=== PATIENT | male | born 1955 | race Caucasian/White ===

== ENCOUNTER → 2016-09-11 | Outpatient (CLI) | payer OTHER ==
[~2016-09-11] MED LIST: ALBI1INJ SC; ALBU1AER9 INH; ASPI81TA28 PO; CHOL1000 PO; CYAN10005 IM; CYAN3INJ SC; GLC/500 PO; LOSA1TAB38 PO; MAGN1TAB41 PO; METF1000 PO; MULT-506 PO; OXYC1TAB3 PO; OYST500T47 PO; PANT40TA PO; PEDICHW50 PO; RED1CAP5 PO; TAMS0.4C59 PO
[2016-09-11 15:11] LABS: CHOLESTEROL/HDL RATIO 3.5
[2016-09-12 07:06] LABS: ESTIMATED AVERAGE GLUCOSE 134 mg/dl; HA1C FLAG Normal (Normal)
== END | disposition home or self-care (01) ==
LOC: C.LAB1850 12:52
PROVIDERS: ATTEND Internal Medicine Endocrinology, Diabetes & Metabolism
DX: E11.9 Type 2 diabetes mellitus without complications (principal)

== ENCOUNTER → 2017-05-16 | Day surgery (SDC) | payer OTHER ==
[2017-05-07 12:52] VITALS: BMI 35.0
[~2017-05-16] VITALS: Ht 182.9 cm; Wt 118.2 kg
[~2017-05-16] MED LIST changes: -ALBU1AER9 INH; -CYAN3INJ SC; -GLC/500 PO; +LIDOCAINE HCL 2% 2 ML VIAL (20MG/ML) ONE; -OXYC1TAB3 PO; -PEDICHW50 PO; +PROPOFOL IV EMULSION 10 MG/ML 20 ML VIAL IV ONE; +SODIUM CHLORIDE 0.9% 500ML 500 ML IV ONE; -TAMS0.4C59 PO
[2017-05-16 12:14] VITALS: Ht 182.9 cm; Wt 118.2 kg
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
--- NOTE | 2017-05-16 13:24 | GI REPORT ---
Procedure Date: 05/16/2017 12:49 PM Procedure: Colonoscopy Indications: Screening for colorectal malignant neoplasm Medicines: Monitored Anesthesia Care Complications: No immediate complications. Estimated Blood Loss: Estimated blood loss: none. Procedure: Pre-Anesthesia Assessment: - Prior to the procedure, a History and Physical was performed, and patient medications and allergies were reviewed. The patient's tolerance of previous anesthesia was also reviewed. The risks and benefits of the procedure and the sedation options and risks were discussed with the patient. All questions were answered, and informed consent was obtained. Prior Anticoagulants: The patient has taken aspirin, last dose was 1 day prior to procedure. ASA Grade Assessment: II - A patient with mild systemic disease. After reviewing the risks and benefits, the patient was deemed in satisfactory condition to undergo the procedure. After I obtained informed consent, the scope was passed under direct vision. Throughout the procedure, the patient's blood pressure, pulse, and oxygen saturations were monitored continuously. The scope was introduced through the anus and advanced to the terminal ileum. The colonoscopy was performed without difficulty. The patient tolerated the procedure well. The quality of the bowel preparation was good. The terminal ileum, ileocecal valve, appendiceal orifice, and rectum were photographed. Findings: A 8 mm polyp was found in the rectum. The polyp was sessile. The polyp was removed with a hot snare. Resection and retrieval were complete. Non-bleeding internal hemorrhoids were found during retroflexion. The hemorrhoids were small. Impression: - One 8 mm polyp in the rectum, removed with a hot snare. Resected and retrieved. - Non-bleeding internal hemorrhoids. Recommendation: - Resume previous diet. - Continue present medications. - Repeat colonoscopy for surveillance based on pathology results. - Return to primary care physician as previously scheduled. Mathew Mckee DO 05/16/2017 1:24:13 PM This report has been signed electronically. Note Initiated On: 05/16/2017 12:49 PM I attest to the content of the Intraoperative Record and orders documented therein, exceptions below
--- NOTE | 2017-05-16 13:28 | Discharge Instructions ---
Endoscopy Patient Instructions Date / Procedure(s) Performed May 16, 2017. Colonoscopy Allergy Information Coded Allergies: Tramadol (Verified Adverse Reaction, Unknown, itching, 05/16/17) Discharge Date / Findings May 16, 2017. Rectal polyp Internal hemorrhoids Medication Instructions Stopped Medication(s): NO MEDS TODAY OK to resume all medications today as prescribed Reported Home Medications Medications Dose Route/Sig Max Daily Dose Days Date Category Tanzeum (Albiglutide) 30 Mg Inj 30 Mg SC Sunday05/07/17 Reported Red Yeast Rice (Red Yeast Rice Extract) 300 Mg Cap 1 Tab PO QAM 05/07/17 Reported Multivitamin (Multivitamins) Tab 1 Tab PO QAM 05/07/17 Reported Magnesium (Magnesium Oxide) 400 Mg Tab 1 Tab PO QPM 05/07/17 Reported Vitamin D3 (Cholecalciferol) 1,000 Unit Tab 1 Tab PO QAM 05/07/17 Reported Vitamin B-12 (Cyanocobalamin) 1,000 Mcg Tab 1,000 Mcg IM MONTHLY 05/07/17 Reported Calcium (Oyster Shell) 500 Mg Tab 1 Tab PO QAM 05/07/17 Reported Aspirin Ec (Aspirin) 81 Mg Tab 81 Mg PO QPM 05/07/17 Reported Glucophage (Metformin Hcl) 1,000 Mg Tab 1,000 Mg PO BID 05/07/17 Reported Protonix (Pantoprazole Sodium) 40 Mg Tab 40 Mg PO QPM 01/18/13 Reported Cozaar (Losartan Potassium) 100 Mg Tab 100 Mg PO QPM 01/18/13 Reported Provider Instructions Activity Restrictions - No exercising or heavy lifting for 24 hours. - Do not drink alcohol the day of the procedure. - Do not drive a car or operate machinery until the day after the procedure. - Do not make any important decisions or sign important papers in 24 hours after the procedure. Following Day: - Return to full activity which may include returning to work/school. Diet Start your diet with liquids and light foods (jello, soup, juice, toast). Then eat your usual diet if not nauseated. Treatment For Common After Affects For mild abdominal pain, bloating, or excessive gas: - Rest - Eat lightly - Lie on right side Follow-Up Information Follow-up with RENNY FARMER as scheduled Anesthesia Information What You Should Know You have had a procedure that required some medicine to reduce anxiety and discomfort. This treatment is called moderate sedation. After receiving the treatment, you may be sleepy, but you will be able to breathe on your own. The effects of the treatment may last for several hours. Follow these instructions along with Activity/Diet recommendations noted above: * Do NOT do anything where dizziness or clumsiness would be dangerous. * Rest quietly at home today, then you can be up and about tomorrow. * Have a responsible person stay with you the rest of today. * You may have had an I.V. today. If so, you may take the dressing off later today. Recommendations Call your doctor if: * Trouble breathing * Continuous vomiting for more than 24 hours * Temperature above 101 degrees * Severe abdominal pain or bloating * Pain not relieved by pain medicine ordered * There is increased drainage or redness from any incision * A large amount of rectal bleeding greater than 2-3 tablespoons. (If you had a polyp/s removed or have hemorrhoids, a small amount of blood - from the rectum is to be expected.) * You have any unanswered questions or concerns. IN THE EVENT OF A SERIOUS EMERGENCY, GO TO THE NEAREST EMERGENCY ROOM Your discharge instructions were prepared by provider Mathew Mckee. Patient Instructions Signature Page Gerson Lopez Patient (or Guardian) Signature/Date: I have read and understand the instructions given to me by my caregivers. Caregiver/RN/Doctor Signature/Date: The above-named patient and/or guardian has received patient instructions on this date. + Original Patient Signature Page (only) stays with chart. Please make copy for patient.
[2017-05-16 13:50] VITALS: BP 95/68; PULSE 62; O2SAT 98
--- NOTE | 2017-05-16 14:24 | Anesthesiology Progress Note ---
Anesthesia Post Op Note Date & Time May 16, 2017 at 14:24 Vital Signs Pain Intensity: 0 Vital Signs Past 12 Hours Date Time Temp Pulse Resp B/P (MAP) Pulse Ox O2 Delivery O2 Flow Rate FiO2 05/16/17 13:50 62 20 95/68 (77) 98 Room Air 05/16/17 13:35 68 18 134/89 (104) 98 Room Air 05/16/17 13:20 65 16 116/68 (84) 98 Room Air 05/16/17 12:19 36.6 74 18 152/86 (108) 98 Room Air Notes Mental Status: alert / awake / arousable, participated in evaluation Pt Amnestic to Procedure: Yes Nausea / Vomiting: adequately controlled Pain: adequately controlled Airway Patency, RR, SpO2: stable & adequate BP & HR: stable & adequate Hydration State: stable & adequate Anesthetic Complications: no major complications apparent
== END | disposition home or self-care (01) ==
LOC: C.GI 12:00
PROVIDERS: ATTEND Internal Medicine
DX: Z12.11 Encounter for screening for malignant neoplasm of colon (principal); D12.8 Benign neoplasm of rectum; K64.8 Other hemorrhoids; G47.33 Obstructive sleep apnea (adult) (pediatric); I10 Essential (primary) hypertension; Z79.82 Long term (current) use of aspirin; Z98.84 Bariatric surgery status

== ENCOUNTER → 2017-06-14 | Outpatient (CLI) | payer OTHER ==
[~2017-06-14] MED LIST changes: -LIDOCAINE HCL 2% 2 ML VIAL (20MG/ML) ONE; -PROPOFOL IV EMULSION 10 MG/ML 20 ML VIAL IV ONE; -SODIUM CHLORIDE 0.9% 500ML 500 ML IV ONE
[2017-06-14 12:39] LABS: ALT/SGPT 25 U/L (12-78); AST/SGOT 16 U/L (15-37); BLOOD UREA NITROGEN 14 mg/dl (7-18); CALCIUM 9.2 mg/dl (8.5-10.1); CARBON DIOXIDE 29 mmol/L (21-32); CHLORIDE 105 mmol/L (98-107); CREATININE 1.07 mg/dl (0.60-1.40); GLUCOSE 106 mg/dl (70-99); POTASSIUM 4.1 mmol/L (3.5-5.1); SODIUM 141 mmol/L (136-145)
[2017-06-14 12:50] LABS: ALKALINE PHOSPHATASE 77 U/L (45-117); CHOLESTEROL 191 mg/dl (0-200); CHOLESTEROL/HDL RATIO 3.8; HDL CHOLESTEROL 50 mg/dl; LDL CHOLESTEROL CALCULATED 102 mg/dl; TRIGLYCERIDES 193 mg/dl (0-150); VERY LOW DENSITY LIPOPROT CALC 39 mg/dl
[2017-06-14 12:59] LABS: ESTIMATED AVERAGE GLUCOSE 134 mg/dl; HA1C FLAG Normal (Normal)
== END | disposition home or self-care (01) ==
LOC: C.LAB1850 09:41
PROVIDERS: ATTEND Physician Assistant
DX: E11.9 Type 2 diabetes mellitus without complications (principal)

== ENCOUNTER 2024-10-30 20:43 | Inpatient (IN) ==
--- NOTE | 2024-10-30 21:05 | Emergency Department Note ---
Impression & Plan Hydronephrosis due to obstruction of ureter, Ureterolithiasis, Right flank pain, Renal insufficiency ED Provider Note NAME: BRIGITTE TOVAR AGE: 69 SEX: M : 1955 ARRIVES VIA: Walk-In INFORMANT: Patient ED PROVIDER(S): Vishnu Araya MD CHIEF COMPLAINT: Right flank pain, kidney stone. PLAN: Disposition: Admit MEDICAL DECISION MAKING: The patient is a pleasant 69-year-old gentleman with a past medical history of hypertension, hyperlipidemia, BPH, type 2 diabetes who presents to the emergency department via walk-in for evaluation of persistent right flank pain in setting of being seen in this emergency department several days ago for similar symptoms diagnosed with an obstructing kidney stone. Patient symptoms were controlled and trial of outpatient management was pursued. However, patient reports she has had no improvement and has fluctuating symptoms where he has found it difficult to sleep. He reports associated nausea but denies any vomiting. Denies any chest pain or shortness of breath. He reports he did feel chills intermittently but denies any fevers. On evaluation patient is uncomfortable in no distress, afebrile with with heart in 100s and blood pressure 170/80s in the setting of his discomfort and otherwise stable vital signs. He appears clinically dry. Abdomen is nontender. He has no discrete CVA tenderness though reports discomfort. WBC and platelets within normal limits. H/H 13.2/39.6, slightly decreased from prior values and nonspecific. Glucose 299 however chemistry without metabolic acidosis. Creatinine 1.6, increased from recent consistent with YOAN. LFTs unremarkable. Lipase was not elevated. UA without evidence of infection. CT of the abdomen pelvis was performed and demonstrates obstructing right ureteral stone which is described as 2 calculi in the distal ureter measuring 7 mm and 3 mm in size which appears to have migrated from the mid ureter to the distal ureter. Mild right hydronephrosis and hydroureter persist. Patient did report some initial improvement following IV hydration, IV APAP, Zofran and morphine. However pain did recur and he did agree with plan for admission. Case was discussed with Dr. Reardon, [facility] hospitalist, who will evaluate the patient for admission. Further management per admitting team. Triage Nursing notes reviewed and agree them. Prior/external medical records reviewed Vital Signs: reviewed Differential diagnosis: Renal colic, UTI, appendicitis, diverticulitis, mesenteric ischemia, aortic pathology, infections, inflammatory bowel disease, PUD, biliary pathology, as well as other pathologies. ER treatment provided: See below. Diagnostics interpreted by me: Cardiac Monitoring: An order for continuous cardiac monitoring was placed and demonstrated sinus tachycardia, 105 bpm, no ectopy. Laboratory studies: See below Imaging studies: See below Consultation(s): Case was discussed with Dr. Reardon, [facility] hospitalist, who will evaluate the patient for admission. HPI: The patient is a pleasant 69-year-old gentleman with a past medical history of hypertension, hyperlipidemia, BPH, type 2 diabetes who presents to the emergency department via walk-in for evaluation of persistent right flank pain in setting of being seen in this emergency department several days ago for similar symptoms diagnosed with an obstructing kidney stone. Patient symptoms were controlled and trial of outpatient management was pursued. However, patient reports she has had no improvement and has fluctuating symptoms where he has found it difficult to sleep. He reports associated nausea but denies any vomiting. Denies any chest pain or shortness of breath. He reports he did feel chills intermittently but denies any fevers. ROS: See above HPI for pertinent positives & negatives. A total of 10 systems reviewed and were otherwise negative. GENERAL: Awake, alert, uncomfortable-appearing, in no distress HENT: Normocephalic, atraumatic. Oropharynx with dry mucous membranes and otherwise unremarkable. . EYES: Normal conjunctiva. Sclera non-icteric. NECK: Supple. No nuchal rigidity. FROM. No JVD. RESPIRATORY: Clear to auscultation. CARDIAC: Regular rate, normal rhythm. Extremities warm and well perfused. Pulses equal. ABDOMEN: Soft, non-distended. No tenderness to palpation. No rebound or guarding. No masses. MUSCULOSKELETAL: Chest examination reveals no tenderness. The back is symmetrical on inspection without obvious abnormality. There is no CVA tenderness to palpation. No joint edema. LOWER EXTREMITIES: Calves are equal size bilaterally and non-tender. No edema. No discoloration. NEURO: Normal sensorium. No sensory or motor deficits noted. SKIN: No rash or jaundice noted. Vishnu Araya MD Past Med/Surg History Problem List Renal insufficiency (Acute) Right flank pain (Acute) Ureterolithiasis (Acute) Hydronephrosis due to obstruction of ureter (Acute) Acute renal insufficiency Hydronephrosis of right kidney Right nephrolithiasis Hematuria (Acute) Hydronephrosis (Acute) Renal colic (Acute) Acute right flank pain (Acute) Uncontrolled type 2 diabetes mellitus Vitamin B 12 deficiency (Acute) S/P gastric bypass (Acute) Obstructive sleep apnea (Acute) Obesity (Acute) Hypertension (Acute) Hyperlipidemia (Acute) Erectile dysfunction (Acute) Esophageal reflux (Acute 01/18/13) Diabetic peripheral neuropathy (Acute) Benign localized prostatic hyperplasia with lower urinary tract symptoms (LUTS) (Acute) Type II diabetes with penitentiary use of insulin Loss of protective sensation of skin of foot Myalgia due to statin Left flank pain Fatty liver Medical History Neuropathy fingers and toes Kidney stones passed on own Esophageal reflux Borderline high cholesterol History of COVID-19 approx 2 yrs ago > not hospitalized CELI (obstructive sleep apnea) no device Hypertension Diabetes Surgical History History of esophagogastroduodenoscopy (EGD) History of colonoscopy History of tooth extraction Gastric bypass status for obesity H/O splenectomy Family History Father , late 60s/early 70s Colorectal cancer Mother Diabetes Pts mother had triopathy secondary to diabetes Social History Smoking Status: Never smoker Second Hand Exposure: No; Do You Dip or Chew Tobacco: No; Tobacco Cessation Education Requested by Patient: No Hx Alcohol Use: Yes Alcohol type: beer Alcohol Intake Frequency: Monthly or Less Alcohol Intake Frequency Comment: Social Drinker Hx Substance Use: No Preferred Language: Norwegian Communication Ability: Effective Visual Impairment: Limited Hearing Ability: Normal Surgery Attendant Required: No Beliefs That Will Affect Care: None marital status: Current Living Situation: Spouse current occupational status: employed 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 Other Information That Helps Us Care for You: No Feels Safe at Home: Yes Safety Concerns: Feels Safe At This Time Childhood Exposure to Second-Hand Smoke: No Diet: regular during the past year weight has: remained stable Dental Care, Regularly: Yes Seatbelt Use: always Do you think of yourself as: straight/heterosexual Gender Identity: Male Assistive Devices: Denture - Upper, Denture - Lower and Glasses Allergies Allergies Allergy/AdvReac Type Severity Reaction Status Date / Time lisinopril Allergy Intermediate Cough Verified 10/27/24 10:47 atorvastatin [From Lipitor] Allergy Unknown Unknown Verified 10/27/24 10:47 simvastatin [From Zocor] Allergy Unknown Unknown Verified 10/27/24 10:47 tramadol AdvReac Unknown itching Verified 10/27/24 10:47 Home Meds Home Medications Medication Instructions Recorded Confirmed aspirin 81 mg tablet,delayed 81 mg PO HS 04/09/19 10/30/24 release magnesium oxide 400 mg PO HS 04/09/19 10/30/24 multivitamin with minerals (Daily 1 tab PO QAM 04/09/19 10/30/24 Multivitamin-Minerals tablet) red yeast rice 600 mg tablet 600 mg PO QAM 04/09/19 10/30/24 blood sugar diagnostic (OneTouch #10 ea 11/03/19 04/30/24 Verio test strips) lancets 30 gauge (OneTouch Delica #25 ea 11/03/19 04/30/24 Lancets) acetaminophen 500 mg tablet 500 mg PO Q6H PRN Pain 01/06/22 10/30/24 (Tylenol Extra Strength) omega [id number] oil 900 1 cap PO QAM ##0 01/06/22 10/30/24 mg-1,400 mg capsule,delayed release calcium carbonate 1,200 mg PO QAM 09/21/22 10/30/24 insulin degludec 200 unit/mL (3 18 unit subcut SPACE 10/27/24 10/30/24 mL) subcutaneous pen (Tresiba FlexTouch U-200 insulin) Previous Rx's Medication Instructions Recorded blood-glucose sensor (FreeStyle #2 ea 01/23/23 Daniel 3 Sensor device) cholecalciferol (vitamin D3) 25 25 mcg PO QAM #90 caps 02/18/24 mcg (1,000 unit) capsule pen needle, diabetic 31 gauge x #100 ea 02/21/24 3/16" (BD Ultra-Fine Mini Pen Needle) tamsulosin 0.4 mg capsule (Flomax) 0.4 mg PO HS #90 caps 02/21/24 losartan 100 mg tablet 100 mg PO HS #90 tabs 04/25/24 metformin 1,000 mg tablet 1,000 mg PO BID #180 tabs 04/25/24 albuterol sulfate 90 mcg/actuation 2 puff inhalation Q6H PRN 08/12/24 aerosol inhaler shortness of breath or wheezing #6.7 grams famotidine 20 mg tablet 20 mg PO BID #180 tabs 08/14/24 ezetimibe 10 mg tablet (Zetia) 10 mg PO DAILY #30 tabs 10/20/24 oxycodone 5 mg tablet 5 mg PO Q6 PRN pain #12 tabs 10/27/24 Results & Data (ED) Vital Signs Vital Signs - 24 hr 10/30/24 20:47 10/30/24 21:11 10/30/24 21:18 Temperature 36.7 C Temperature Source Temporal Artery Scan Pulse Rate 105 H 94 H Pulse Rate [Apical] 89 Pulse Rhythm Pulse Rhythm [Apical] Regular Pulse Strength [Apical] Normal Respiratory Rate 18 18 Respiratory Effort / Characteristics Non-Labored Non-Labored Spontaneous Respiratory Depth Normal Normal Respiratory Pattern Regular Blood Pressure 173/81 H Blood Pressure [Right Arm] 166/88 H Blood Pressure Mean 111 Blood Pressure Mean [Right Arm] 114 Blood Pressure Position [Right Arm] Lying Pulse Oximetry 95 96 Oxygen Delivery Method Room Air Room Air Sepsis Recent Fever Within 48 Hours No Sepsis New/Unexplained Change in Mental Status No Sepsis Action Taken by Nursing No Action Required 10/30/24 21:18 10/30/24 22:23 Temperature Temperature Source Pulse Rate 76 Pulse Rate [Apical] 72 Pulse Rhythm Regular Pulse Rhythm [Apical] Regular Pulse Strength [Apical] Normal Respiratory Rate 18 20 Respiratory Effort / Characteristics Non-Labored Spontaneous Respiratory Depth Normal Respiratory Pattern Regular Blood Pressure Blood Pressure [Right Arm] 136/81 Blood Pressure Mean Blood Pressure Mean [Right Arm] 99 Blood Pressure Position [Right Arm] Lying Pulse Oximetry 96 95 Oxygen Delivery Method Room Air Room Air Sepsis Recent Fever Within 48 Hours Sepsis New/Unexplained Change in Mental Status Sepsis Action Taken by Nursing Laboratory Data Attestation: I reviewed the patient's lab results. 10/30/24 21:10 10/30/24 21:10 Lab Results 10/30/24 Range/Units 21:10 WBC 10.44 (4.8-10.8) K/ul RBC 4.53 L (4.70-6.10) M/uL Hgb 13.2 L (14.0-18.0) g/dl Hct 39.6 L (42.0-52.0) % MCV 87.4 (80.0-100.0) fL MCH 29.1 (25.0-34.0) pg MCHC 33.3 (32.0-36.0) g/dL RDW Std Deviation 47.2 H (36.4-46.3) fL RDW Coeff of Shailesh 14.6 H (11.5-14.5) % Plt Count 313 (130-400) K/uL MPV 9.5 (9.4-12.4) fL Immature Gran % (Auto) 0.3 % Neut % (Auto) 67.0 % Lymph % (Auto) 18.0 % [place] % (Auto) 12.0 % Eos % (Auto) 1.7 % Baso % (Auto) 1.0 % Neut # (Auto) 7.00 H (1.40-6.50) K/uL Lymph # (Auto) 1.88 (1.20-3.40) K/uL [place] # (Auto) 1.25 H (0.11-0.59) K/uL Eos # (Auto) 0.18 (0.00-0.50) K/uL Baso # (Auto) 0.10 (0.00-0.20) K/uL Immature Gran # (Auto) 0.03 (0.01-0.20) K/uL Sodium 135 L (136-145) mmol/L Potassium 4.3 (3.5-5.1) mmol/L Chloride 102 (98-107) mmol/L Carbon Dioxide 24 (21-32) mmol/L Anion Gap 9 (3-11) BUN 21 (6-23) mg/dl Creatinine 1.67 H (0.6-1.4) mg/dl Est Cr Clr Drug Dosing 57.0 ml/min eGFR 44.03 BUN/Creatinine Ratio 12.6 (10-20) Glucose 299 H (70-99(Fasting)) mg/dl Calcium 8.9 (8.6-10.3) mg/dl Total Bilirubin 0.7 (0.2-1.0) mg/dl AST 17 (13-39) U/L ALT 16 (7-52) U/L Alkaline Phosphatase 64 (34-104) U/L Total Protein 6.8 (6.0-8.3) gm/dl Albumin 3.8 (3.4-5.0) gm/dl Globulin 3.0 (2.5-4.0) gm/dl Albumin/Globulin Ratio 1.3 (0.9-2) Lipase 60 (11-82) U/L Urine Color Yellow Urine Appearance Clear (Clear) Urine pH 5.0 (4.5-7.5) Ur Specific [place] 1.019 (1.000-1.030) Urine Protein Negative (Negative) Urine Glucose (UA) 3+ H (Negative) Urine Ketones Trace H (Negative) Urine Blood 1+ H (Negative) Urine Nitrite Negative (Negative) Urine Bilirubin Negative (Negative) Urine Urobilinogen Negative (Negative) Ur Leukocyte Esterase Negative (Negative) Urine WBC (Auto) 0-5 (0-5) /hpf Urine RBC (Auto) 0-2 (0-2) /hpf U Hyaline Cast (Auto) 0-2 (0-2) /lpf U Epithel Cells (Auto) 0-2 (0-2) /hpf Urine Bacteria (Auto) None Seen (None Seen) Administered Medications Hydromorphone HCl (Hydromorphone Inj 1 Mg/Ml Syringe) 1 mg IV Q3H PRN PRN Reason: Severe Pain (Scale 7, 8, 9,10) Stop: 11/14/24 02:06 Last Admin: 10/31/24 05:14 Dose: 1 mg Documented By: VANIA Cefepime HCl (Maxipime 2000mg) 1,000 mg in 10 mls @ 5 mls/min IV Q12H [facility]; Protocol Stop: 11/05/24 00:00 Last Admin: 10/31/24 01:40 Dose: 5 mls/min Documented By: KALI Lactated Ringer's (Lr) 1,000 mls @ 80 mls/hr IV .[id number] [facility] Stop: 10/31/24 23:29 Last Admin: 10/31/24 00:04 Dose: 80 mls/hr Documented By: SUHAIL Acetaminophen (Ofirmev) 1,000 mg in 100 mls @ 400 mls/hr IV Q8H [facility] Stop: 11/03/24 04:59 Last Infusion: 10/31/24 05:38 Dose: Infused Documented By: Admin: 10/31/24 05:13 Dose: 400 mls/hr Documented By: VANIA Insulin Aspart (Insulin Aspart Per Unit Charge) 0 units SC Q6 DEISY Stop: 11/30/24 00:00 Last Admin: 10/31/24 01:30 Dose: Not Given Documented By: KALI Ondansetron HCl (Ondansetron Inj 2 Mg/Ml 2 Ml Vial) 4 mg IV Q6H PRN PRN Reason: Nausea And Vomiting Stop: 11/29/24 23:31 Last Admin: 10/31/24 05:22 Dose: 4 mg Documented By: Admin: 10/31/24 00:20 Dose: 4 mg Documented By: SUHAIL Discontinued Medications Hydromorphone HCl (Hydromorphone Inj 0.5 Mg/0.5 Ml Syr) 0.5 mg IV NOW STA Stop: 10/30/24 23:28 Last Admin: 10/31/24 00:04 Dose: 0.5 mg Documented By: SUHAIL Sodium Chloride (Nss) 1,000 mls @ 999 mls/hr IV .Q1H1M ONE Stop: 10/30/24 21:59 Last Infusion: 10/30/24 23:30 Dose: Infused Documented By: Admin: 10/30/24 21:09 Dose: 999 mls/hr Documented By: SUHAIL Acetaminophen (Ofirmev) 1,000 mg in 100 mls @ 400 mls/hr IV NOW STA Stop: 10/30/24 21:13 Last Infusion: 10/30/24 21:40 Dose: Infused Documented By: Admin: 10/30/24 21:08 Dose: 400 mls/hr Documented By: SUHAIL Morphine Sulfate (Morphine Sulfate 4 Mg/Ml 1 Ml Carp\\Vial) 4 mg IV NOW STA Stop: 10/30/24 21:05 Last Admin: 10/30/24 21:09 Dose: 4 mg Documented By: SUHAIL Morphine Sulfate (Morphine Sulfate 10 Mg/Ml Carp/Vial) 6 mg IV NOW STA Stop: 10/30/24 23:27 Last Admin: 10/30/24 23:56 Dose: Not Given Documented By: KALI Ondansetron HCl (Ondansetron Inj 2 Mg/Ml 2 Ml Vial) 4 mg IV NOW STA Stop: 10/30/24 21:00 Last Admin: 10/30/24 21:09 Dose: 4 mg Documented By: SUHAIL Imaging Data Radiologist's Impression: Abdomen/Pelvis CT 10/30/24 21:50 Exam(s): CT ABDOMEN + PELVIS Without Contrast EXAM: CT Abdomen and Pelvis Without Intravenous Contrast CLINICAL HISTORY: Reason for exam: right flank pain. TECHNIQUE: Axial computed tomography images of the abdomen and pelvis without intravenous contrast. CTDI is 28.14 mGy and DLP is 1754.82 mGy-cm. Automated exposure control was utilized for the study. A dose lowering technique was utilized adhering to the principles of ALARA. COMPARISON: 10/27/2024. FINDINGS: Exam is limited due to lack of contrast. Lung bases: No consolidation. ABDOMEN: Liver: The liver is enlarged. Gallbladder and bile ducts: Gallbladder is markedly distended. . No calcified stones. No ductal dilation. Pancreas: No ductal dilation. Spleen: No splenomegaly. There are calcifications within the spleen. Adrenals: No mass. Kidneys and ureters: There is a 3.5 cm lucency in the right kidney. There are small bilateral renal calcifications. There is mild right hydronephrosis and hydroureter due to two calculi in the distal ureter measuring 7 mm and 3 mm in size Stomach and bowel: There are postoperative changes involving the bowel. The stomach is decompressed. There is air and stool noted in the colon.. PELVIS: Appendix: The appendix is not visualized.. Bladder: No calculi are noted within the bladder.. Reproductive: The prostate gland is enlarged.. ABDOMEN and PELVIS: Intraperitoneal space: No free air. No significant fluid collection. Bones/joints: There are degenerative changes in the spine.. Soft tissues: Unremarkable. Vasculature: No abdominal aortic aneurysm. Lymph nodes: No enlarged lymph nodes. IMPRESSION: There are small bilateral renal calcifications. There is mild right hydronephrosis and hydroureter due to two calculi in the distal ureter measuring 7 mm and 3 mm in size. There is a possible right renal cyst. The prostate gland is enlarged. The gallbladder is markedly distended. Hepatomegaly. Electronically signed by: Harley Burns MD 10/30/24 23:05 PM Discharge Plan Visit Data Chief Complaint: Flank Pain Stated Complaint: KIDNEY STONES ED Provider: Cross,Vishnu E Discharge Problem: Hydronephrosis due to obstruction of ureter, Ureterolithiasis, Right flank pain, Renal insufficiency Patient Disposition: Admitted As Inpatient Discharge Instructions Interventions: ED Discharge Assessment Last Done: 10/31/24 01:45
[2024-10-30] MEDS: ACETAMINOPHEN 1,000 MG/100 ML VIAL IV STA (21:08)
[2024-10-30] MEDS: ONDANSETRON INJ 2 MG/ML 2 ML VIAL IV STA (21:09)
[2024-10-30] MEDS: MoRPHine SULFATE 4 MG/ML 1 ML CARP\\VIAL IV STA (21:09)
[2024-10-30] MEDS: SODIUM CHLORIDE 0.9% 1,000 ML IV ONE (21:09)
[2024-10-30 21:27] LABS: Eosinophils # (auto) 0.18 K/uL (0.00-0.50); Eosinophils % (auto) 1.7 %; Hematocrit (blood only) 39.6 % (42.0-52.0); Hemoglobin 13.2 g/dl (14.0-18.0); Immature Granulocytes # (auto) 0.03 K/uL (0.01-0.20); Immature Granulocytes % (auto) 0.3 %; Lymphocytes # (auto) 1.88 K/uL (1.20-3.40); Mean Corpuscular Hemoglobin 29.1 pg (25.0-34.0); Mean Corpuscular Hgb Conc 33.3 g/dL (32.0-36.0); Mean Corpuscular Volume 87.4 fL (80.0-100.0); Mean Platelet Volume 9.5 fL (9.4-12.4); Monocytes # (auto) 1.25 K/uL (0.11-0.59); Platelet Count 313 K/uL (130-400); RDW Coefficient of Variation 14.6 % (11.5-14.5); RDW Standard Deviation 47.2 fL (36.4-46.3); Red Blood Count 4.53 M/uL (4.70-6.10); White Blood Count 10.44 K/ul (4.8-10.8)
[2024-10-30 21:29] LABS: Appearance Urine Clear (Clear); Bacteria Urine Automated None Seen (None Seen); Bilirubin Urine Negative (Negative); Blood Urine 1+ (Negative); Cast Urine Automated 0-2 /lpf (0-2); Color Urine Yellow; Epithelial Cell Urine Auto 0-2 /hpf (0-2); Glucose Urine UA 3+ (Negative); Ketones Urine Trace (Negative); Leukocyte Esterase Urine Negative (Negative); Nitrite Urine Negative (Negative); Protein Urine Negative (Negative); RBC Urine Automated 0-2 /hpf (0-2); Specific Gravity Urine 1.019 (1.000-1.030); Urobilinogen Urine Negative (Negative); WBC Urine Automated 0-5 /hpf (0-5)
[2024-10-30 21:42] LABS: Albumin Globulin Ratio 1.3 (0.9-2); Albumin Level 3.8 gm/dl (3.4-5.0); BUN Creatinine Ratio 12.6 (10-20); Bilirubin,Total 0.7 mg/dl (0.2-1.0); Calcium 8.9 mg/dl (8.6-10.3); Potassium 4.3 mmol/L (3.5-5.1); Total Protein 6.8 gm/dl (6.0-8.3)
--- NOTE | 2024-10-30 23:06 | CT Scan Report ---
Exam(s): CT ABDOMEN + PELVIS Without Contrast EXAM: CT Abdomen and Pelvis Without Intravenous Contrast CLINICAL HISTORY: Reason for exam: right flank pain. TECHNIQUE: Axial computed tomography images of the abdomen and pelvis without intravenous contrast. CTDI is 28.14 mGy and DLP is 1754.82 mGy-cm. Automated exposure control was utilized for the study. A dose lowering technique was utilized adhering to the principles of ALARA. COMPARISON: 10/27/2024. FINDINGS: Exam is limited due to lack of contrast. Lung bases: No consolidation. ABDOMEN: Liver: The liver is enlarged. Gallbladder and bile ducts: Gallbladder is markedly distended. . No calcified stones. No ductal dilation. Pancreas: No ductal dilation. Spleen: No splenomegaly. There are calcifications within the spleen. Adrenals: No mass. Kidneys and ureters: There is a 3.5 cm lucency in the right kidney. There are small bilateral renal calcifications. There is mild right hydronephrosis and hydroureter due to two calculi in the distal ureter measuring 7 mm and 3 mm in size Stomach and bowel: There are postoperative changes involving the bowel. The stomach is decompressed. There is air and stool noted in the colon.. PELVIS: Appendix: The appendix is not visualized.. Bladder: No calculi are noted within the bladder.. Reproductive: The prostate gland is enlarged.. ABDOMEN and PELVIS: Intraperitoneal space: No free air. No significant fluid collection. Bones/joints: There are degenerative changes in the spine.. Soft tissues: Unremarkable. Vasculature: No abdominal aortic aneurysm. Lymph nodes: No enlarged lymph nodes. IMPRESSION: There are small bilateral renal calcifications. There is mild right hydronephrosis and hydroureter due to two calculi in the distal ureter measuring 7 mm and 3 mm in size. There is a possible right renal cyst. The prostate gland is enlarged. The gallbladder is markedly distended. Hepatomegaly. Electronically signed by: Harley Burns MD 10/30/24 23:05 PM
--- NOTE | 2024-10-30 23:33 | History & Physical Report ---
Date of Service October 30, 2024 Assessment & Plan (1) Right nephrolithiasis: (2) Hydronephrosis of right kidney: (3) Acute renal insufficiency: (4) Type II diabetes with superintendent container terminal use of insulin: Plan Patient is a 69-year-old male with past medical history of type II DM on insulin, CELI, hypertension, hyperlipidemia, BPH, GERD, history of gastric bypass surgery. He presented to the ED 10/27 and was found to have a 7 mm obstructing right mid ureteral stone and discharged on oxycodone. Patient returned to the ED 10/30 due to worsening pain. He was now found to have a 7 and 3 mm distal ureter stones with mild right hydronephrosis. He has been admitted for IV pain control, will make n.p.o. and consult urology. #Right nephrolithiasis/hydronephrosis/acute renal insufficiency CTAP showing mild right hydronephrosis and hydroureter due to 7 mm and 3 mm calculi in distal ureter UA negative however will send for culture nonseptic - VSS, afebrile, no leukocytosis; trend CBC creatinine increased from 1.33 to 1.67; IVF and trend BMP - 1L NSS bolus in ED - IVF resuscitation with LR at 80 mL/hour visually looks toxic, will cover with ABX - cover with cefepime given diabetes history urology consulted N.p.o. continue tamsulosin 0.4mg HS - took prior to arrival to ED 10/30 scheduled Tylenol and Dilaudid 0.5mg/1mg for pain unrelieved by 1&2 - Narcan as needed - defer further Toradol use given acute renal insufficiency Zofran Prn #T2DM Controlled on Metformin 1000 twice daily and insulin at home; hold metformin Most recent A1C 7.1% SSI with target BSG range 110-180mg/dL, CF 40, defer carb ratio reduce home Lantus from 18 units to 14 units with n.p.o. status and stricter diet control during hospitalization BSG ACHS if eating, q6h if npo #gallbladder distention/hepatomegaly AP CT showed gallbladder distention and hepatomegaly LFTs WNL Follow-up with PCP Chronic stable diagnoses: OSAno longer uses CPAP after gastric bypass HTNholding losartan with n.p.o. status HLD holding Zetia and ASA with n.p.o. status BPHcontinue tamsulosin, AP CT showed enlarged prostate GERDholding PO famotidine, will transition to IV VTE ppx: SCDs, low risk and possible surgical management for above Diet: NPO Dispo: MedSurg with continuous pulse ox given IV opioid use Admission and Anticipated Discharge Date Admission Date: 10/30/24 History of Present Illness Chief Complaint: flank pain Primary Care Provider: Waqar Gold MD Patient is a 69-year-old male with past medical history of type II DM on insulin, CELI, hypertension, hyperlipidemia, BPH, GERD, history of gastric bypass surgery. He presented to the ED 10/27 and was found to have a 7 mm obstructing right mid ureteral stone and discharged on oxycodone. Patient returned to the ED 10/30 due to worsening pain. He was now found to have a 7 and 3 mm distal ureter stones with mild right hydronephrosis. He has been admitted for IV pain control, will make n.p.o. and consult urology. Patient seen at bedside. He stated he is about had about 5 kidney stones in the past but has passed them all without significant difficulty. Was seen in the ED several days ago and prescribed oxycodone, his pain continued to get worse at home. He endorses some nausea that comes and goes. The pain currently is shooting across the front of his abdomen on the right side. He also stated it is difficult to breathe with the pain however denies chest pain or shortness of breath. He denies any fevers or chills. He does not use nicotine products or drink alcohol regularly. He has a history of gastric bypasses and has monthly B12 injections. He no longer requires CPAP for sleep apnea after his gastric bypass. He took all of his home medications today including his evening insulin and tamsulosin 0.4 Mg po. he wishes to be DNR/DNI. Patient later reevaluated, wishes to be full code. Allergies Allergy/AdvReac Type Severity Reaction Status Date / Time lisinopril Allergy Intermediate Cough Verified 10/27/24 10:47 atorvastatin [From Lipitor] Allergy Unknown Unknown Verified 10/27/24 10:47 simvastatin [From Zocor] Allergy Unknown Unknown Verified 10/27/24 10:47 tramadol AdvReac Unknown itching Verified 10/27/24 10:47 Home Medications Medication Instructions Recorded Confirmed Type aspirin 81 mg tablet,delayed 81 mg PO HS 04/09/19 10/30/24 History release magnesium oxide 400 mg PO HS 04/09/19 10/30/24 History multivitamin with minerals (Daily 1 tab PO QAM 04/09/19 10/30/24 History Multivitamin-Minerals tablet) red yeast rice 600 mg tablet 600 mg PO QAM 04/09/19 10/30/24 History blood sugar diagnostic (OneTouch #10 ea 11/03/19 04/30/24 History Verio test strips) lancets 30 gauge (OneTouch Delica #25 ea 11/03/19 04/30/24 History Lancets) acetaminophen 500 mg tablet 500 mg PO Q6H PRN Pain 01/06/22 10/30/24 History (Tylenol Extra Strength) omega 5-zee-vwr-fish oil 900 1 cap PO QAM ##0 01/06/22 10/30/24 History mg-1,400 mg capsule,delayed release calcium carbonate 1,200 mg PO QAM 09/21/22 10/30/24 History blood-glucose sensor (FreeStyle #2 ea 01/23/23 04/30/24 Rx Daniel 3 Sensor device) cholecalciferol (vitamin D3) 25 25 mcg PO QAM #90 caps 02/18/24 10/30/24 Rx mcg (1,000 unit) capsule pen needle, diabetic 31 gauge x #100 ea 02/21/24 04/30/24 Rx 3/16" (BD Ultra-Fine Mini Pen Needle) tamsulosin 0.4 mg capsule (Flomax) 0.4 mg PO HS #90 caps 02/21/24 10/30/24 Rx losartan 100 mg tablet 100 mg PO HS #90 tabs 04/25/24 10/30/24 Rx metformin 1,000 mg tablet 1,000 mg PO BID #180 tabs 04/25/24 10/30/24 Rx albuterol sulfate 90 mcg/actuation 2 puff inhalation Q6H PRN 08/12/24 10/30/24 Rx aerosol inhaler shortness of breath or wheezing #6.7 grams famotidine 20 mg tablet 20 mg PO BID #180 tabs 08/14/24 10/30/24 Rx ezetimibe 10 mg tablet (Zetia) 10 mg PO DAILY #30 tabs 10/20/24 10/30/24 Rx insulin degludec 200 unit/mL (3 18 unit subcut SPACE 10/27/24 10/30/24 History mL) subcutaneous pen (Tresiba FlexTouch U-200 insulin) oxycodone 5 mg tablet 5 mg PO Q6 PRN pain #12 tabs 10/27/24 10/30/24 Rx Past Med/Surg History Problem List (Updated 10/31/24 @ 00:17 by Vishnu Araya MD) Hydronephrosis due to obstruction of ureter (Acute) Acute renal insufficiency Hydronephrosis of right kidney Right nephrolithiasis Hematuria (Acute) Hydronephrosis (Acute) Renal colic (Acute) Acute right flank pain (Acute) Uncontrolled type 2 diabetes mellitus Vitamin B 12 deficiency (Acute) S/P gastric bypass (Acute) Obstructive sleep apnea (Acute) Obesity (Acute) Hypertension (Acute) Hyperlipidemia (Acute) Erectile dysfunction (Acute) Esophageal reflux (Acute 01/18/13) Diabetic peripheral neuropathy (Acute) Benign localized prostatic hyperplasia with lower urinary tract symptoms (LUTS) (Acute) Type II diabetes with superintendent container terminal use of insulin Loss of protective sensation of skin of foot Myalgia due to statin Left flank pain Fatty liver Medical History Neuropathy fingers and toes Kidney stones passed on own Esophageal reflux Borderline high cholesterol History of COVID-19 approx 2 yrs ago > not hospitalized CELI (obstructive sleep apnea) no device Hypertension Diabetes Surgical History Gastric bypass status for obesity H/O splenectomy History of colonoscopy History of esophagogastroduodenoscopy (EGD) History of tooth extraction Family History Father Colorectal cancer Mother Diabetes Social History Smoking Status: Never smoker Second Hand Exposure: No; Do You Dip or Chew Tobacco: No; Tobacco Cessation Education Requested by Patient: No Hx Alcohol Use: Yes Alcohol type: beer Alcohol Intake Frequency: Monthly or Less Alcohol Intake Frequency Comment: Social Drinker Hx Substance Use: No Preferred Language: [place]er Communication Ability: Effective Visual Impairment: Limited Hearing Ability: Normal Peanut Blancher Required: No Beliefs That Will Affect Care: None marital status: Current Living Situation: Spouse current occupational status: employed 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 HEENT- EOMI, mucous membranes dry. Hearing grossly intact. Heart-normal S1 and S2. No murmurs, rubs or gallops. Lungs-clear bilaterally, no respiratory distress, no accessory muscle use. Abdomen-normal bowel sounds and soft. No ascites noted. Extremities- no clubbing, cyanosis, or edema. Results & Data Results & Data Vital Signs (Past 12 Hours) Vital Signs Temp Pulse Pulse Resp BP BP Pulse Ox 10/30/24 22:23 72 20 136/81 95 10/30/24 21:18 76 18 96 10/30/24 21:18 89 18 166/88 H 96 10/30/24 21:11 94 H 10/30/24 20:47 36.7 C 105 H 18 173/81 H 95 O2 Del Method 10/30/24 22:23 Room Air 10/30/24 21:18 Room Air 10/30/24 21:18 Room Air 10/30/24 21:11 10/30/24 20:47 Room Air Laboratory Results Reviewed CBC, CMP, lipase, UA Diagnostic Findings reviewed AP CT Medications Administered ED1L NSS, Tylenol 1G IV, Zofran 4 Mg IV, morphine 4 Mg IV AdmissionDilaudid 0.5 Mg IV, cefepime 1.5G IV, LR 80 mL/hour ECG Additional Comments: ordered Code Status & VTE Plan Code Status dnr/dni VTE Prophylaxis Plan VTE Prophylaxis will be ordered: Yes Supervising Physician Co-Signing Physician Notes Attending addendum: I have physically seen this patient, have supervised the AYSE's activities, and agree with the H&P unless as otherwise noted. Assessment and Plan: The patient is a 69-year-old male with past medical history including diabetes mellitus type 2 on insulin, CELI, hypertension, hyperlipidemia, BPH with LUTS, GERD, and history of gastric bypass surgery. He presents to the emergency department with right flank pain, that initially developed on 10/27, prompting his first visit to the emergency department. At that visit he was found of a 7 mm obstructing right mid ureteral stone and was discharged on oxycodone. Patient had return of and worsening of pain on 10/30. CT scan at this point found a 7 and 3 mm distal ureteral stone, with mild right hydroureteronephrosis. Patient is referred for evaluation and treatment to the [facility] service with urologic consult #7 and 3 mm distal right ureteral stones, with mild right hydroureteronephrosis- Follow urine culture sensitivity Empiric cefepime 2 g IV daily From the ED received the following: Normal saline 1 L bolus, Tylenol 1 g IV, Zofran 4 mg IV, and morphine sulfate 4 mg IV. Placed on LR at 80 mL/h x 1 L Acetaminophen 1 g IV every 8 hours as needed for mild pain or fever Dilaudid 0.5 mg IV every 3 hours as needed for moderate pain Dilaudid 1 mg IV every 3 hours as needed for severe pain Narcan IV per protocol for respiratory depression Zofran 4 mg IV every 6 hours as needed Tamsulosin 0.4 mg p.o. daily Consult urology Diabetes mellitus type 2- Hold metformin Placed on Accu-Cheks with NovoLog SSI Changing glargine from 18 to 14 units subcu daily Gallbladder distention/hepatomegaly- As noted on CT scan Normal liver tests Follow for any symptoms while in hospital or post discharge Chronic medical diagnoses: CELI-Improved after gastric bypass Hypertension-temporarily holding losartan Hyperlipidemia hold Zetia and aspirin while n.p.o. BPH with LUTS-continue tamsulosin GERD-change oral famotidine to IV PG Care Time/CCT Total # of Minutes Spent Total Time Spent with Patient: Total time spent is greater than 50% in coordination of care (as documented) at patient's floor/unit and/or counseling patient: Coding Level of Care Code 49600 INT INP/OBS CARE 3/75MIN Diagnoses Right nephrolithiasis N20.0 Hydronephrosis of right kidney N13.30 Acute renal insufficiency N28.9 Type 2 diabetes mellitus without complication, with long-term current use of insulin E11.9; Z79.4 Diabetes mellitus complication status: without complication (4) Type II diabetes with mcfp use of insulin Diabetes mellitus complication status: without complication Qualified Code(s): E11.9 - Type 2 diabetes mellitus without complications; Z79.4 - terminal carman (current) use of insulin
[2024-10-30] MEDS ORDERED: GLUCOSE 10 TAB/TUBE PO PRN (23:43)
[2024-10-30] MEDS ORDERED: DEXTROSE 50% 50 ML SYRINGE IV PRN (23:43)
[2024-10-30] MEDS ORDERED: CARBOHYDRATES FOR HYPOGLYCEMIA PO PRN (23:43)
[2024-10-30] MEDS ORDERED: GLUCAGON FOR INJ 1 MG VIAL SQ PRN (23:43)
[2024-10-30] MEDS ORDERED: GLUCOSE 40% GEL 15 GM TUBE PO PRN (23:43)
[2024-10-30] MEDS: MoRPHine SULFATE 10 MG/ML CARP/VIAL IV STA (23:56)
[2024-10-31] MEDS: LACTATED RINGER'S 1,000 ML IV SCH (00:04)
[2024-10-31] MEDS: HYDROmorphone INJ 0.5 MG/0.5 ML SYR IV STA (00:04)
[2024-10-31] MEDS: ONDANSETRON INJ 2 MG/ML 2 ML VIAL IV PRN (00:20)
[2024-10-31] MEDS: INSULIN ASPART PER UNIT CHARGE SC SCH ×2 (01:30→17:41)
[2024-10-31] MEDS: CEFEPIME 1000MG 1,000 MG/10 ML SYR IV SCH (01:40)
[2024-10-31] MEDS ORDERED: NALOXONE HCL 0.4 MG/1 ML VIAL/CARP IV PRN (02:07)
[2024-10-31] MEDS ORDERED: HYDROmorphone INJ 0.5 MG/0.5 ML SYR IV PRN (02:07)
[2024-10-31] MEDS ORDERED: ONDANSETRON INJ 2 MG/ML 2 ML VIAL IV PRN (02:07)
[2024-10-31] MEDS: ACETAMINOPHEN 1,000 MG/100 ML VIAL IV SCH (05:13)
[2024-10-31] MEDS: HYDROmorphone INJ 1 MG/ML SYRINGE IV PRN (05:14)
[2024-10-31 07:16] LABS: Hematocrit (blood only) 39.3 % (42.0-52.0); Hemoglobin 12.8 g/dl (14.0-18.0); Mean Corpuscular Hemoglobin 28.4 pg (25.0-34.0); Mean Corpuscular Hgb Conc 32.6 g/dL (32.0-36.0); Mean Corpuscular Volume 87.3 fL (80.0-100.0); Mean Platelet Volume 9.2 fL (9.4-12.4); Platelet Count 295 K/uL (130-400); RDW Coefficient of Variation 14.7 % (11.5-14.5); RDW Standard Deviation 47.4 fL (36.4-46.3); White Blood Count 9.31 K/ul (4.8-10.8)
[2024-10-31 07:33] LABS: BUN Creatinine Ratio 11.8 (10-20); Calcium 8.7 mg/dl (8.6-10.3); Creatinine Clr Calc Pharmacy 59.2 ml/min; Potassium 4.6 mmol/L (3.5-5.1)
[2024-10-31] MEDS ORDERED: LANTUS PER UNIT CHARGE SQ SCH (09:00)
[2024-10-31] MEDS: FAMOTIDINE 20MG IV PUSH 20 MG/5 ML SYR IV SCH (09:14)
[2024-10-31] MEDS: PROCHLORPERAZINE 10 MG in SYRINGE 8 ML IV PRN (09:58)
--- NOTE | 2024-10-31 10:14 | Hospitalist Progress Note ---
Date of Service October 31, 2024 Assessment & Plan (1) Right nephrolithiasis: (2) Hydronephrosis of right kidney: (3) Headache: (4) YOAN (acute kidney injury): Plan Patient is a 69-year-old male with past medical history of type II DM on insulin, CELI, hypertension, hyperlipidemia, BPH, GERD, history of gastric bypass surgery. He presented to the ED 10/27 and was found to have a 7 mm obstructing right mid ureteral stone and discharged on oxycodone. Patient returned to the ED 10/30 due to worsening pain. He was now found to have a 7 and 3 mm distal ureter stones with mild right hydronephrosis and acute kidney injury. #Right nephrolithiasis/hydronephrosis/YOAN-CTAP showing mild right hydronephrosis and hydroureter due to 7 mm and 3 mm calculi in distal ureter. UA negative for infection but urine culture sent and started on cefepime. No evidence of sepsis. Creatinine elevated at 1.6 on admission and stable. Now s/p ureteral stent placement, laser lithotripsy and stone extraction as well as bladder biopsy on 10/31 IV Dilaudid he thinks gave him a bad headache -Discontinue IV Dilaudid and start IV morphine as needed for pain in addition to Tylenol-avoid NSAIDs/Toradol given YOAN -Continue tamsulosin 0.4mg HS -Zofran as needed for nausea and add Compazine as Zofran not helping -Continue 1 more liter of IV fluids -Follow BMP in the morning -Discontinue cefepime as there is no evidence of infection #Headache-severe, likely related to dehydration and may be secondary to side effect of Dilaudid as seems to correlate. No focal neurological deficits -Change Dilaudid to morphine -Continue IV fluids, Tylenol -Checked head CT-negative #[id number] on Metformin 1000 twice daily and insulin at home, Most recent A1C 7.1% SSI with target BSG range 110-180mg/dL, CF 40, defer carb ratio reduce home Lantus from 18 units to 14 units with n.p.o. status and stricter diet control during hospitalization BSG ACHS if eating, q6h if npo #gallbladder distention/hepatomegaly/fatty liver-no acute issues but seen on CT A/P. LFTs normal -Recommend weight loss and low carbohydrate diet -Follow-up with PCP #Dyan longer uses CPAP after gastric bypass #HTNBPs normal -Holding losartan with YOAN #HLDokay to resume Zetia and ASA after surgery #BPHcontinue tamsulosin, AP CT showed enlarged prostate #GERDresume home PO famotidine and discontinue IV VTE ppx: SCDs Dispo: Continued stay [facility] Admission and Anticipated Discharge Date Admission Date: October 30, 2024 Subjective Patient having a bad posterior headache as well as some nausea. Still with some right sided flank pain. He was seen prior to going to the operating room for ureteral stent. Pain in the head is severe and much worse with sitting up. Physical Exam Constitutional: WD/WN, vitals as above Eyes: PERRL, conjunctivae normal, anicteric sclerae Respiratory: normal respiratory effort, lungs clear to auscultation Cardiovascular: RRR, no murmur, no edema Gastrointestinal (Abdomen): normal bowel sounds, soft, nontender, no hepatosplenomegaly Neurologic: PERRL, EOMI, accommodation nl, no face palsy, no dysarthria CN's II-XI intact bilaterally; no focal motor deficits and not confused Psychiatric: A+Ox3, euthymic affect Results & Data Results & Data Vital Signs (Past 12 Hours) Vital Signs Temp Pulse Pulse Pulse Resp BP BP 10/31/24 08:36 36.6 C 78 18 143/85 H 10/31/24 02:11 36.6 C 88 18 10/31/24 01:45 80 17 128/84 10/31/24 01:25 80 15 128/84 10/31/24 00:00 76 18 131/84 10/30/24 22:23 72 20 136/81 Pulse Ox O2 Del Method 10/31/24 08:36 94 Room Air 10/31/24 02:11 98 Room Air 10/31/24 01:45 94 Room Air 10/31/24 01:25 93 Room Air 10/31/24 00:00 96 Room Air 10/30/24 22:23 95 Room Air Laboratory Results CBC, BMP, urine culture, CT head reviewed PG Care Time/CCT Total # of Minutes Spent Total Time Spent with Patient: Total time spent is greater than 50% in coordination of care (as documented) at patient's floor/unit and/or counseling patient: Coding Level of Care Code 14974 SUB INP/OBS CARE MIN Diagnoses Right nephrolithiasis N20.0 Hydronephrosis of right kidney N13.30 Headache R51.9 YOAN (acute kidney injury) N17.9
--- NOTE | 2024-10-31 11:13 | CT Scan Report ---
CT head/brain wo con CLINICAL HISTORY: 69 years-old Male with severe headache,r/o ICH. Acute headache TECHNIQUE: Multiple axial CT images of the head were obtained without contrast. A dose lowering tech nique was utilized adhering to the principles of ALARA. CT DOSE: 625.8 mGy.cm COMPARISON: None. FINDINGS: No acute intracranial hemorrhage, midline shift, intracranial mass, hydrocephalus, territorial ischem ia or abnormal extra-axial collection. Partially empty sella. Involutional changes with minimal white matter hypodensities suggestive of chronic microvascular ischemic disease. The calvarium is intact. The paranasal sinuses, mastoid air cells, and middle ear cavities are clear . IMPRESSION: No acute intracranial abnormality. ACT 112: Negative or not required by law. The above report was generated using voice recognition software. It may contain grammatical, syntax o r spelling errors. Electronically signed by: Dheeraj Morgan M.D. 10/31/2024 11:12 AM
--- NOTE | 2024-10-31 11:29 | Anesthesiology Consultation ---
Date of Service October 31, 2024 Assessment & Plan (1) Encounter for pre-operative examination: Chart Review Chart Review: Acceptable Risk for Surgery History Surgery Operation Date: 10/31/24 08:20 Proposed Procedures p Cystoscopy, Right Stent Placement, - Brady Wheeler DO s Possible Laser Stone Treatment - Brady Wheeler DO Height/Weight Height: 6 ft Weight: 125.237 kg Allergies Allergy/AdvReac Type Severity Reaction Status Date / Time lisinopril Allergy Intermediate Cough Verified 10/27/24 10:47 atorvastatin [From Lipitor] Allergy Unknown Unknown Verified 10/27/24 10:47 simvastatin [From Zocor] Allergy Unknown Unknown Verified 10/27/24 10:47 hydromorphone [From Dilaudid] AdvReac Intermediate Headache Verified 10/31/24 10:16 tramadol AdvReac Unknown itching Verified 10/27/24 10:47 Medications Home Medications Medication Instructions Recorded Confirmed Last Taken aspirin 81 mg tablet,delayed 81 mg PO HS 04/09/19 10/30/24 10/30/24 release magnesium oxide 400 mg PO HS 04/09/19 10/30/24 10/30/24 multivitamin with minerals (Daily 1 tab PO QAM 04/09/19 10/30/24 10/30/24 Multivitamin-Minerals tablet) red yeast rice 600 mg tablet 600 mg PO QAM 04/09/19 10/30/24 10/30/24 blood sugar diagnostic (OneTouch #10 ea 11/03/19 04/30/24 Unknown Verio test strips) lancets 30 gauge (OneTouch Delica #25 ea 11/03/19 04/30/24 Unknown Lancets) acetaminophen 500 mg tablet 500 mg PO Q6H PRN Pain 01/06/22 10/30/24 09/19/22 (Tylenol Extra Strength) omega 6-hke-rkh-fish oil 900 1 cap PO QAM ##0 01/06/22 10/30/24 10/30/24 mg-1,400 mg capsule,delayed release calcium carbonate 1,200 mg PO QAM 09/21/22 10/30/24 10/30/24 blood-glucose sensor (FreeStyle #2 ea 01/23/23 04/30/24 Unknown Daniel 3 Sensor device) cholecalciferol (vitamin D3) 25 25 mcg PO QAM #90 caps 02/18/24 10/30/24 10/30/24 mcg (1,000 unit) capsule pen needle, diabetic 31 gauge x #100 ea 02/21/24 04/30/24 Unknown 3/" (BD Ultra-Fine Mini Pen Needle) tamsulosin 0.4 mg capsule (Flomax) 0.4 mg PO HS #90 caps 02/21/24 10/30/24 10/30/24 losartan 100 mg tablet 100 mg PO HS #90 tabs 04/25/24 10/30/24 10/30/24 metformin 1,000 mg tablet 1,000 mg PO BID #180 tabs 04/25/24 10/30/24 10/30/24 albuterol sulfate 90 mcg/actuation 2 puff inhalation Q6H PRN 08/12/24 10/30/24 10/30/24 aerosol inhaler shortness of breath or wheezing #6.7 grams famotidine 20 mg tablet 20 mg PO BID #180 tabs 08/14/24 10/30/24 10/30/24 ezetimibe 10 mg tablet (Zetia) 10 mg PO DAILY #30 tabs 10/20/24 10/30/24 10/30/24 insulin degludec 200 unit/mL (3 18 unit subcut SPACE 10/27/24 10/30/24 10/30/24 mL) subcutaneous pen (Tresiba FlexTouch U-200 insulin) oxycodone 5 mg tablet 5 mg PO Q6 PRN pain #12 tabs 10/27/24 10/30/24 10/30/24 Active Medications Generic Name Dose Route Start Last Admin Trade Name Freq PRN Reason Stop Dose Admin Lactated Ringer's 1,000 mls @ 80 mls/hr 10/30/24 23:30 10/31/24 00:04 Lr IV 10/31/24 23:29 80 mls/hr .[id number] DEISY Administration Acetaminophen 1,000 mg in 100 mls @ 400 mls/hr 10/31/24 05:00 10/31/24 05:38 Ofirmev IV 11/03/24 04:59 Infused Q8H DEISY Infusion Famotidine 20 mg in 5 mls @ 2.5 mls/min 10/31/24 09:00 10/31/24 09:14 Pepcid 20mg Iv Push IV 11/30/24 08:59 2.5 mls/min Q12H DEISY Administration Prochlorperazine 10 mg/ 10 mls @ 5 mls/min 10/31/24 09:09 10/31/24 09:58 Syringe IV 11/30/24 09:08 5 mls/min Q6H PRN Administration Nausea And Vomiting Insulin Aspart 0 units 10/31/24 00:00 10/31/24 06:14 Insulin Aspart Per Unit Charge SC 11/30/24 00:00 Not Given Q6 DEISY Ondansetron HCl 4 mg 10/30/24 23:32 10/31/24 05:22 Ondansetron Inj 2 Mg/Ml 2 Ml Vial IV 11/29/24 23:31 4 mg Q6H PRN Administration Nausea And Vomiting Past Medical History Medical History (Updated 10/31/24 @ 11:36 by Sarath Colin MD) Diabetic peripheral neuropathy Hyperlipidemia Neuropathy fingers and toes Kidney stones passed on own Esophageal reflux Borderline high cholesterol History of COVID-19 approx 2 yrs ago > not hospitalized CELI (obstructive sleep apnea) no device Hypertension Diabetes Past Family History Family History Father , late 60s/early 70s Colorectal cancer Mother Diabetes Pts mother had triopathy secondary to diabetes Past Surgical History Surgical History History of esophagogastroduodenoscopy (EGD) History of colonoscopy History of tooth extraction Gastric bypass status for obesity H/O splenectomy Social History Smoking Status: Never smoker Do You Dip or Chew Tobacco: No Hx Alcohol Use: Yes Alcohol type: beer alcohol intake frequency: a few times a week Hx Substance Use: No substance use type: does not use Physical Exam Vital Signs Last Vital Signs Temp 36.6 C 10/31/24 08:36 Pulse 78 10/31/24 08:36 Resp 18 10/31/24 08:36 BP 143/85 H 10/31/24 08:36 Pulse Ox 94 10/31/24 08:36 O2 Del Method Room Air 10/31/24 08:36 Testing Laboratory Results 10/31/24 06:42 10/31/24 06:42 Urine Color Yellow 10/30/24 21:10 Urine Appearance Clear (Clear) 10/30/24 21:10 Urine pH 5.0 (4.5-7.5) 10/30/24 21:10 Ur Specific [place] 1.019 (1.000-1.030) 10/30/24 21:10 Urine Protein Negative (Negative) 10/30/24 21:10 Urine Glucose (UA) 3+ (Negative) H 10/30/24 21:10 Urine Ketones Trace (Negative) H 10/30/24 21:10 Urine Nitrite Negative (Negative) 10/30/24 21:10 Ur Leukocyte Esterase Negative (Negative) 10/30/24 21:10 Urine WBC (Auto) 0-5 /hpf (0-5) 10/30/24 21:10 Urine RBC (Auto) 0-2 /hpf (0-2) 10/30/24 21:10 U Hyaline Cast (Auto) 0-2 /lpf (0-2) 10/30/24 21:10 U Epithel Cells (Auto) 0-2 /hpf (0-2) 10/30/24 21:10 Urine Bacteria (Auto) None Seen (None Seen) 10/30/24 21:10 10/31/24 10/31/24 10/31/24 09:14 06:11 01:29 POC Glucose 138 H 157 H 135 H
--- NOTE | 2024-10-31 11:46 | Urology Consultation ---
Date of Consultation October 31, 2024 Assessment & Plan (1) Ureterolithiasis: (2) Right flank pain: (3) Hydronephrosis due to obstruction of ureter: 69-year-old male with obstructing right ureteral calculi admitted on 10/30 for worsening flank pain. He is afebrile, hemodynamically stable Labs reviewedcreatinine 1.61, WBC 9.31, hemoglobin 12.8 Urinalysis was not suggestive of infection Reviewed and discussed CT results showing obstructing right ureteral calculi Discussed options for stone management including surgical intervention with cystoscopy, right ureteral stent placement, possible stone treatment/extraction versus outpatient treatment if symptoms are controlled He previously failed outpatient management and would like to proceed with surgical intervention today Will proceed to OR for cystoscopy, right ureteral stent placement and possible stone treatment Keep n.p.o. for procedure Patient treated with cefepime on arrival Will cover with Ancef preoperatively See attending note for further details (4) Acute right flank pain: (5) S/P gastric bypass: (6) Hypertension: (7) Obesity: (8) Benign localized prostatic hyperplasia with lower urinary tract symptoms (LUTS): Plan Attending note: Patient independently assessed, examined, interviewed, and evaluated. Patient with 2 obstructing stones in the ureter on the right side causing considerable hydronephrosis and possible development of significant infection. Agree with note as above. Patient's vitals and labs were all reviewed. Pertinent values in the HPI and plan section. Imaging was reviewed interpreted by myself. CT examination was reviewed and thoroughly assessed by myself. Does have 2 obstructing stones within the ureter significant hydroureter and hydronephrosis on the right side. Agree with read. Vitals were reviewed. Currently afebrile temperature 36.4 blood pressure is elevated 150/99 pulse 75 respirations 20 oxygen saturation 96% on room air. All labs and vitals were thoroughly reviewed creatinine is elevated at 1.61 white count 9.31 previous PSA from August was 1.672. Discussed findings extensively with patient and family. Reviewed with nurse practitioner as well as consulting physicians/team. Patient's complicated medical and surgical history was reviewed and summarized above. Patient's surgical, medical, social, and family history were all reviewed with pertinent values as above. Discussed patient's current diagnosis as well as concerns and issues. Reviewed different options moving forward. Discussed potential risks and benefits as well as possible options and concerns. Reviewed potential surgical options and interventions. Discussed potential issues and concerns related to intervention. Risk and benefits were discussed extensively with patient and any available family. Discussed potential risks related to anesthesia. Discussed risks of bleeding infection and injury. Discussed options for conservative measure and maximum expulsion medical therapy and symptom controlled. Discussed ESWL. Discussed Ureteroscopy with extraction and/or laser lithotripsy. Risks and benefits were discussed. Stone free rates were also discussed as well as possibility of multiple procedures. Ureteral stents were discussed as well as post-operative issues and pain management. All questions were answered. Risks and benefits discussed at length for procedure. These include bleeding, infection, injury to surrounding tissues or organs, and risks associated with anesthesia. Patient states understanding and agrees to proceed. Will sign consent and schedule. Plan for cystoscopy with possible right stone treatment and stent placement. Plan for urgent procedure secondary to possible issues with infection as well as ongoing severe pain and major issues. History of Present Illness Attending Physician: Nadege Garcia MD History of Present Illness This is a 69-year-old male with right sided obstructing ureteral stones. Patient initially presented to the emergency department on 10/[address] scan was performed. CT showed mild right sided hydroureteronephrosis secondary to an obstructing 7 mm mid ureteral calculus, nonobstructing bilateral nephrolithiasis. Labs showed WBC 13.11, hemoglobin 15.0, creatinine 1.33. Urinalyis showed >20 RBC, negative for bacteria. He was discharged from the ED. He returned to the ED on 10/30 with worsening flank pain. Labs showed WBC 10.54, hemoglobin 13.2, sodium 135, creatinine 1.67. Urinalysis notable for 1+ blood, negative for bacteria. CT imaging showed mild right hydronephrosis and hydroureter secondary to 2 calculi at the distal ureter measuring 7 mm and 3 mm at bedside, bilateral renal calcifications. He was admitted to the hospital medicine service for pain management. Urology is consulted for nephrolithiasis. Patient seen and examined at bedside. present. He reports intermittent right flank pain radiating to abdomen. No nausea, vomiting, fever or chills at present. He is voiding spontaneously. He is currently NPO. Prior history of kidney stones. No prior surgical intervention for stones. Allergies Allergy/AdvReac Type Severity Reaction Status Date / Time lisinopril Allergy Intermediate Cough Verified 10/27/24 10:47 atorvastatin [From Lipitor] Allergy Unknown Unknown Verified 10/27/24 10:47 simvastatin [From Zocor] Allergy Unknown Unknown Verified 10/27/24 10:47 hydromorphone [From Dilaudid] AdvReac Intermediate Headache Verified 10/31/24 10:16 tramadol AdvReac Unknown itching Verified 10/27/24 10:47 Home Medications Medication Instructions Recorded Confirmed Type aspirin 81 mg tablet,delayed 81 mg PO HS 04/09/19 10/30/24 History release magnesium oxide 400 mg PO HS 04/09/19 10/30/24 History multivitamin with minerals (Daily 1 tab PO QAM 04/09/19 10/30/24 History Multivitamin-Minerals tablet) red yeast rice 600 mg tablet 600 mg PO QAM 04/09/19 10/30/24 History blood sugar diagnostic (OneTouch #10 ea 11/03/19 04/30/24 History Verio test strips) lancets 30 gauge (OneTouch Delica #25 ea 11/03/19 04/30/24 History Lancets) acetaminophen 500 mg tablet 500 mg PO Q6H PRN Pain 01/06/22 10/30/24 History (Tylenol Extra Strength) omega 1-dmj-ffr-fish oil 900 1 cap PO QAM ##0 01/06/22 10/30/24 History mg-1,400 mg capsule,delayed release calcium carbonate 1,200 mg PO QAM 09/21/22 10/30/24 History blood-glucose sensor (FreeStyle #2 ea 01/23/23 04/30/24 Rx Daniel 3 Sensor device) cholecalciferol (vitamin D3) 25 25 mcg PO QAM #90 caps 02/18/24 10/30/24 Rx mcg (1,000 unit) capsule pen needle, diabetic 31 gauge x #100 ea 02/21/24 04/30/24 Rx 3/16" (BD Ultra-Fine Mini Pen Needle) tamsulosin 0.4 mg capsule (Flomax) 0.4 mg PO HS #90 caps 02/21/24 10/30/24 Rx losartan 100 mg tablet 100 mg PO HS #90 tabs 04/25/24 10/30/24 Rx metformin 1,000 mg tablet 1,000 mg PO BID #180 tabs 04/25/24 10/30/24 Rx albuterol sulfate 90 mcg/actuation 2 puff inhalation Q6H PRN 08/12/24 10/30/24 Rx aerosol inhaler shortness of breath or wheezing #6.7 grams famotidine 20 mg tablet 20 mg PO BID #180 tabs 08/14/24 10/30/24 Rx ezetimibe 10 mg tablet (Zetia) 10 mg PO DAILY #30 tabs 10/20/24 10/30/24 Rx insulin degludec 200 unit/mL (3 18 unit subcut SPACE 10/27/24 10/30/24 History mL) subcutaneous pen (Tresiba FlexTouch U-200 insulin) oxycodone 5 mg tablet 5 mg PO Q6 PRN pain #12 tabs 10/27/24 10/30/24 Rx Patient History Medical History Diabetic peripheral neuropathy Hyperlipidemia Neuropathy fingers and toes Kidney stones passed on own Esophageal reflux Borderline high cholesterol History of COVID-19 approx 2 yrs ago > not hospitalized CELI (obstructive sleep apnea) no device Hypertension Diabetes Surgical History History of esophagogastroduodenoscopy (EGD) History of colonoscopy History of tooth extraction Gastric bypass status for obesity H/O splenectomy Family History Father , late 60s/early 70s Colorectal cancer Mother Diabetes Pts mother had triopathy secondary to diabetes Social History Smoking Status: Never smoker Second Hand Exposure: No; Do You Dip or Chew Tobacco: No; Tobacco Cessation Education Requested by Patient: No Hx Alcohol Use: Yes Alcohol type: beer Alcohol Intake Frequency: Monthly or Less Alcohol Intake Frequency Comment: Social Drinker Hx Substance Use: No Preferred Language: Serbian Communication Ability: Effective Visual Impairment: Limited Hearing Ability: Normal Captain'S Assistant Required: No Beliefs That Will Affect Care: None marital status: Current Living Situation: Spouse current occupational status: employed 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 Obese HEENT: Normocephalic Atraumatic. Inspection normal. Cranial Nerves 2-12 Brianna sly intact. Nares are clear. Neck is supple. Normal inspection of face. Normal inspection of neck. Neurologic: No deficits on inspection. Baseline for motor function and sensory. Psychologic: Normal affect. Respiratory: Nonlabored. No use of accessory muscles. No tachypnea or dyspnea. Cardiovascular: No tachycardia Skin: [place] and Dry. No rashes or visible lesions. Extremities: Moving without issues. No motor deficits on inspection Lymphatics: No edema Abdomen: Soft Non-distended. No rebound or guarding. Constitutional: well developed and well nourished; no acute distress Respiratory: normal respiratory effort; no respiratory distress and no labored breathing Gastrointestinal (Abdomen): Inspection/Auscultation: abdomen normal to inspection Musculoskeletal: Head/Neck/Chest: normocephalic Neurologic: moves all extremities and awake Psychiatric: Orientation: alert and oriented x 3 Results & Data Vital Signs (Past 12 Hours) Vital Signs Temp Pulse Pulse Pulse Resp BP BP 10/31/24 08:36 36.6 C 78 18 143/85 H 10/31/24 02:11 36.6 C 88 18 10/31/24 01:45 80 17 128/84 10/31/24 01:25 80 15 128/84 10/31/24 00:00 76 18 131/84 Pulse Ox O2 Del Method 10/31/24 08:36 94 Room Air 10/31/24 02:11 98 Room Air 10/31/24 01:45 94 Room Air 10/31/24 01:25 93 Room Air 10/31/24 00:00 96 Room Air PG Care Time/CCT Total # of Minutes Spent Total Time Spent with Patient: Total time spent is greater than 50% in coordination of care (as documented) at patient's floor/unit and/or counseling patient: Coding Level of Care Code 26245 INT INP/OBS CARE MIN Diagnoses Ureterolithiasis N20.1 Right flank pain R10.9 Hydronephrosis due to obstruction of ureter N13.1 Acute right flank pain R10.9 S/P gastric bypass Z98.84 Essential hypertension I10 Hypertension type: essential hypertension Class 2 severe obesity due to excess calories with serious comorbidity and body mass index (BMI) of 37.0 to 37.9 in adult E66.01; Z68.37 Obesity type: due to excess calories Obesity classification: adult class 2 (BMI 35 - 39.9) Serious obesity comorbidity presence: with serious comorbidity Body mass index: BMI 37.0-37.9 Benign localized prostatic hyperplasia with lower urinary tract symptoms (LUTS) N40.1 (6) Hypertension Hypertension type: essential hypertension Qualified Code(s): I10 - Essential (primary) hypertension (7) Obesity Obesity type: due to excess calories Obesity classification: adult class 2 (BMI 35 - 39.9) Serious obesity comorbidity presence: with serious comorbidity Body mass index: BMI 37.0-37.9 Qualified Code(s): E66.01 - Morbid (severe) obesity due to excess calories; Z68.37 - Body mass index [BMI] 37.0-37.9, adult
--- NOTE | 2024-10-31 11:49 | History & Physical Bridge Note ---
Date of Service October 31, 2024 History & Physical Bridge Note I have examined the patient, reviewed the History & Physical and in the interval since the performance of the History & Physical I have noted the following changes of clinical significance: no changes noted
[2024-10-31] MEDS ORDERED: fentaNYL citrate PF 100 MCG/2 ML VIAL IV PRN (11:51)
[2024-10-31] MEDS ORDERED: ATROPINE SULFATE 0.1 MG/ML 10ML SYR IV PRN (11:51)
[2024-10-31] MEDS ORDERED: PROMETHAZINE HCL 6.25 MG in SODIUM CHLORIDE 0.9% 50 ML IV PRN (11:51)
[2024-10-31] MEDS ORDERED: MIDAZOLAM HCL 1 MG/ML 2ML VIAL ONE (11:52)
[2024-10-31] MEDS ORDERED: LIDOCAINE 2% 2 ML VIAL/AMP(20MG/ML) INFIL ONE (11:53)
[2024-10-31] MEDS ORDERED: fentaNYL citrate PF 100 MCG/2 ML VIAL ONE (11:53)
[2024-10-31] MEDS ORDERED: ceFAZolin 3000MG 3,000 MG/72.5 ML BAG IV SCH (12:00)
[2024-10-31] MEDS ORDERED: ROCURONIUM BROMIDE 10 MG/ML 5 ML VIAL IV ONE (12:17)
[2024-10-31] MEDS ORDERED: PROPOFOL IV EMULSION 10 MG/ML 20 ML VIAL IV ONE (12:27)
[2024-10-31] MEDS ORDERED: ONDANSETRON INJ 2 MG/ML 2 ML VIAL ONE (12:27)
[2024-10-31] MEDS ORDERED: DEXAMETHASONE SOD INJ 4 MG/ML VIAL ONE (12:27)
[2024-10-31] MEDS: DIATRIZOATE MEGLUMINE 30% 100ML VIAL INSTIL PRN (12:35)
--- NOTE | 2024-10-31 12:38 | Operative Report ---
PG Post Operative Report Pre & Post Diagnosis Operation Date: 10/31/24 08:20 Pre-Op Diagnosis: Ureterolithiasis, Right flank pain, Hydronephrosis due to obstruction of ureter Post-Op Diagnosis: Ureterolithiasis, Right flank pain, Hydronephrosis due to obstruction of ureter I identified the patient and participated in the time-out.: Yes Procedure Operation Date: 10/31/24 08:20 Actual Procedures Cystoscopy with urethral dilation and Bladder Biopsy Right retrograde pyelogram, ureteroscopy, ureteral dilation, laser lithotripsy, stent placement, and stone basket extraction. - Brady Wheeler, Surgeon Brady Wheeler, II, DO Piping Design Specialist None Estimated Blood Loss 5 Findings Consistent with Post-Op Diagnosis Significant edematous changes of the bladder neck and prostate with mild area of stricture within the bulbar urethra which was dilated. Nodular versus polypoid lesion of the bladder neck/trigone. Lesion was biopsied. No significant bleeding afterwards. 2 significant obstructing stones within the distal ureter with the UO obstructed secondary to the leading stone. Stricture of the distal ureter approximately 1 and half centimeters from UO. Stones destroyed to dust and small fragments and larger fragments removed. Specimens Stone Fragments right ureter Drains 6 Fr by 26 double-J ureteral stent. 20 Cymro coud catheter. Anesthesia Type General Complications none Disposition Disposition: Recovery Room Indications Patient with bothersome stones. Risks and benefits discussed at length. Description of Procedure Patient was consented and brought back to the operating room. Patient was placed under anesthesia in the supine position and moved to the dorsal lithotomy position. Patient was prepped and draped in the regular sterile fashion. A time out was completed. A 30degree Cystoscope was placed into the bladder and the entire bladder was examined. Within the prostatic urethra there was significant inflammation. There appeared to be some bleeding varicosities. There was a polypoid-like lesion at the bladder neck/right trigone. In the bulbar urethra there was a mild area of stricture. The area of stricture was dilated and the scope was able advance to the bladder neck. The polypoid lesion was able to be assessed. It did have a mild irregular appearance. A biopsy forceps was used to biopsy the area and remove it there was no significant bleeding after biopsy. The UO's were identified. There did appear to be a stone within the UO on the right. The UO was cannulized with a catheter and a retrograde pyelogram was completed. A wire was then placed. Significant narrowing was noted within the distal ureter. There were 2 filling defects likely the 2 stones. The wire had significant difficulty advancing past the stones. The Rigid ureteroscope was taken into the ureter. The stone was identified. A laser fiber was selected and the stones were pulverized to dust and small fragments. This was able to do destroyed the stone in the very distal end of the ureter near the UO. The scope then advanced and a area of stricture was noted. A additional stone was noted in the distal ureter just proximal to the area of stricture. The area of stricture was dilated. The laser was once again selected and the stone was destroyed to small fragments. Larger fragments were grasped and removed and sent for analysis. The entire area was once again examined. The ureter was extremely torturous and dilated proximal to the 2 stones. No residual large fragments or areas of concern were noted. The scope was slowly removed with the wire left in place. Contrast was placed through the scope for a pyelogram to assist in stent placement. The entire ureter was examined as the scope was slowly removed. No obstructions or other areas of concern were noted. With the wire in place, a 6 Fr Double J stent was placed. It was confirmed with fluoroscopy. With the stent in place, the bladder was emptied. The scope was removed. A 20 Cymro catheter was placed to allow drainage of the bladder. The patient was cleaned, aroused from anesthesia, and transferred to the pacu in stable condition having tolerated the procedure well with no complications. I was present and participated in all aspects of the procedure. The patient will be monitored in the PACU until transferred. Plan to maintain catheter for 2 to 5 days. Will maintain stent until follow-up with plans for possible removal I attest to the content of the Intraoperative Record and any orders documented therein. Any exceptions are noted below.
[2024-10-31] MEDS: LABETALOL HCL IV 5 MG/ML 20ML IV PRN (12:58)
--- NOTE | 2024-10-31 13:20 | Anesthesiology Progress Note ---
Date of Service October 31, 2024 Anesthesia Post Procedure Vital Signs Vital Signs: Temp Pulse Pulse Pulse Resp BP BP 10/31/24 13:10 36.5 C 69 18 140/63 10/31/24 13:00 77 18 136/71 10/31/24 12:50 97 H 18 163/106 H 10/31/24 12:44 36.6 C 117 H 18 203/120 H 10/31/24 11:41 36.4 C L 75 20 150/99 H 10/31/24 08:36 36.6 C 78 18 143/85 H 10/31/24 02:11 36.6 C 88 18 10/31/24 01:45 80 17 128/84 10/31/24 01:25 80 15 128/84 10/31/24 00:00 76 18 131/84 10/30/24 22:23 72 20 136/81 10/30/24 21:18 76 18 10/30/24 21:18 89 18 166/88 H 10/30/24 21:11 94 H 10/30/24 20:47 36.7 C 105 H 18 173/81 H Pulse Ox O2 Del Method O2 Flow Rate 10/31/24 13:10 97 Room Air 10/31/24 13:00 96 Oxymask 5 10/31/24 12:50 98 Oxymask 5 10/31/24 12:44 98 Oxymask 5 10/31/24 11:41 96 Room Air 10/31/24 08:36 94 Room Air 10/31/24 02:11 98 Room Air 10/31/24 01:45 94 Room Air 10/31/24 01:25 93 Room Air 10/31/24 00:00 96 Room Air 10/30/24 22:23 95 Room Air 10/30/24 21:18 96 Room Air 10/30/24 21:18 96 Room Air 10/30/24 21:11 10/30/24 20:47 95 Room Air Pain Intensity Right Flank: Pain Intensity: 8 Transfer of Care Handoff Completed per policy Notes Mental Status: alert / awake / arousable Patient Amnestic to Procedure: Yes Nausea / Vomiting: adequately controlled Pain: adequately controlled Airway Patency, RR, SpO2: stable & adequate BP & HR: stable & adequate Hydration State: stable & adequate Anesthetic Complications: no major complications apparent
[2024-10-31] MEDS ORDERED: ALBUTEROL HFA 8 GM INHALER INH PRN (13:45)
[2024-10-31] MEDS: ACETAMINOPHEN 325 MG TAB PO PRN (13:58)
[2024-10-31] MEDS: MoRPHine SULFATE 2 MG/ML CARP IV PRN (13:58)
[2024-10-31] MEDS: DOCUSATE SODIUM/SENNA 50/8.6MG TAB PO SCH (13:58)
[2024-10-31] MEDS: CIPROFLOXACIN 400MG / 200ML D5W IV ONE (13:59)
[2024-10-31] MEDS: CIPROFLOXACIN / D5W 400 MG/200 ML BAG IV SCH (13:59)
[2024-10-31] MEDS: LABETALOL HCL IV 5 MG/ML 20ML IV ONE (13:59)
[2024-10-31] MEDS: PHENAZOPYRIDINE HCL 100 MG TAB PO PRN (14:13)
[2024-10-31] MEDS ORDERED: Nursing to Pharmacy Communication SCH (14:15)
[2024-10-31] MEDS: LANTUS PER UNIT CHARGE SQ SCH (21:39)
[2024-10-31] MEDS: POLYETHYLENE (MIRALAX) 17 GM PACK PO PRN (21:40)
[2024-10-31] MEDS: MAGNESIUM OXIDE 400 MG TAB PO SCH (21:40)
[2024-10-31] MEDS: FAMOTIDINE 20 MG TAB PO SCH (21:40)
[2024-10-31] MEDS: ASPIRIN 81 MG ECTAB PO SCH (21:41)
[2024-10-31] MEDS: TAMSULOSIN HCL 0.4 MG CAP PO SCH (21:41)
[2024-11-01 06:00] VITALS: RESP 18
[2024-11-01 07:36] LABS: Basophils # (auto) 0.04 K/uL (0.00-0.20); Basophils % (auto) 0.4 %; Eosinophils # (auto) 0.02 K/uL (0.00-0.50); Eosinophils % (auto) 0.2 %; Hematocrit (blood only) 38.7 % (42.0-52.0); Hemoglobin 12.9 g/dl (14.0-18.0); Immature Granulocytes # (auto) 0.03 K/uL (0.01-0.20); Immature Granulocytes % (auto) 0.3 %; Lymphocytes # (auto) 1.73 K/uL (1.20-3.40); Lymphocytes % (auto) 17.7 %; Mean Corpuscular Hemoglobin 28.9 pg (25.0-34.0); Mean Corpuscular Hgb Conc 33.3 g/dL (32.0-36.0); Mean Corpuscular Volume 86.8 fL (80.0-100.0); Mean Platelet Volume 9.7 fL (9.4-12.4); Monocytes # (auto) 1.02 K/uL (0.11-0.59); Monocytes % (auto) 10.4 %; Neutrophils # (auto) 6.93 K/uL (1.40-6.50); Platelet Count 297 K/uL (130-400); RDW Coefficient of Variation 14.6 % (11.5-14.5); RDW Standard Deviation 46.9 fL (36.4-46.3); Red Blood Count 4.46 M/uL (4.70-6.10); White Blood Count 9.77 K/ul (4.8-10.8)
[2024-11-01 08:05] LABS: BUN Creatinine Ratio 14.9 (10-20); Calcium 8.7 mg/dl (8.6-10.3); Creatinine Clr Calc Pharmacy 71.1 ml/min; Magnesium 2.1 mg/dl (1.7-2.4); Potassium 4.6 mmol/L (3.5-5.1)
[2024-11-01] MEDS: CALCIUM CARBONATE 1250MG TAB PO SCH (08:34)
[2024-11-01] MEDS: CHOLECALCIFEROL 25 MCG (1000 UNITS) TAB PO SCH (08:34)
[2024-11-01] MEDS: EZETIMIBE 10 MG TAB PO SCH (08:34)
[2024-11-01] MEDS: CEROVITE ADV FORMULA TAB PO SCH (08:34)
--- NOTE | 2024-11-01 08:35 | Urology Progress Note ---
Date of Service November 01, 2024 Assessment & Plan (1) Ureterolithiasis: Plan 69-year-old male who is status post cystoscopy, bladder biopsy and right ureteroscopy for stone treatment by Dr. Wheeler on 10/30/2024. Patient stable today Patient stable for discharge home from a urologic perspective. Dr. Wheeler recommended catheter 2 to 5 days. If he goes home today, recommend he goes home with catheter and we will set up outpatient follow-up for removal on Sunday. If patient stays hospitalized for another day, can perform void trial tomorrow morning. This was discussed with the patient Urology will set up outpatient stent removal as well Urology to sign off Admission and Anticipated Discharge Date Admission Date: October 30, 2024 Subjective 69-year-old male who is status post cystoscopy, bladder biopsy and right ureteroscopy for stone treatment by Dr. Wheeler on 10/30/2024. Malone catheter was left in place with plan to remove it in 2 to 5 days. He is afebrile with stable vitals this morning. Labs show a white blood cell count of 9.7, hemoglobin of 12.9, creatinine of 1.34 which is improved from 1.61. A urine culture is pending. Patient doing well today outside of mild burning from his Malone catheter. Physical Exam Physical Exam: General: Alert and oriented, no acute distress HEENT: Normocephalic, mucous membranes moist Pulmonary: Nonlabored respirations Abdomen: Nondistended : Malone catheter draining robinson urine. Extremities: Moves all 4 spontaneously Neuro: No gross deficits Skin: Warm, dry, no rashes noted Results & Data Vital Signs (Past 12 Hours) Vital Signs Temp Pulse Resp BP BP Pulse Ox O2 Del Method 11/01/24 06:00 36.7 C 73 18 150/79 H 95 Room Air 11/01/24 03:03 36.7 C 67 16 155/80 H 97 Room Air 10/31/24 23:30 36.7 C 69 18 160/77 H 95 Room Air 10/31/24 20:45 36.9 C 88 18 110/67 95 Room Air PG Care Time/CCT Total # of Minutes Spent Total Time Spent with Patient: Total time spent is greater than 50% in coordination of care (as documented) at patient's floor/unit and/or counseling patient: Coding Level of Care Code 57185 SUB INP/OBS CARE 2/35MIN Diagnoses Ureterolithiasis N20.1
[2024-11-01 08:37] VITALS: BP 158/90; TEMP 97.9; O2SAT 97
[2024-11-01] MEDS: oxyBUTYnin chloride 5 MG TAB PO STA (12:56)
[2024-11-01] MEDS ORDERED: oxyCODONE HCL IR 5 MG TAB (IMMEDIATE RELEASE) PO PRN (15:15)
[2024-11-01] MEDS: KETOROLAC TROMETHAMINE 15 MG/ML VIAL IV ONE (15:37)
--- NOTE | 2024-11-01 16:39 | Discharge Summary ---
Discharge Summary Date of Service November 01, 2024 Principal Dx & Hospital Course #1 = Principal Diagnosis (1) Right nephrolithiasis: (2) Hydronephrosis of right kidney: (3) Headache: (4) YOAN (acute kidney injury): Plan Patient is a 69-year-old male with past medical history of type II DM on insulin, CELI, hypertension, hyperlipidemia, BPH, GERD, history of gastric bypass surgery. He presented to the ED 10/27 and was found to have a 7 mm obstructing right mid ureteral stone and discharged on oxycodone. Patient returned to the ED 10/30 due to worsening pain. He was now found to have a 7 and 3 mm distal ureter stones with mild right hydronephrosis and acute kidney injury. #Right nephrolithiasis/hydronephrosis/YOAN-CTAP showing mild right hydronephrosis and hydroureter due to 7 mm and 3 mm calculi in distal ureter. UA negative for infection but urine culture sent and started on cefepime. No evidence of sepsis. Creatinine elevated at 1.6 on admission and now improved to 1.3 after ureteral stent placement and IVF hydration. Now s/p ureteral stent placement, laser lithotripsy and stone extraction as well as bladder biopsy of a polyp and urethral stricture found on 10/31. Malone left in place by Urology IV Dilaudid he thinks gave him a bad headache--> headache now resolved. Had some burning penile pain and bladder spasms the day after the procedure. Improved with oxybutynin and toradol. -dc to home with tylenol, oxycodone prn pain. Can take ibuprofen sparingly as toradol seemed to work the best for his pain-YOAN now improved -Continue tamsulosin 0.4mg HS -no antibiotics needed as there is no evidence of infection-received one dose cefepime and also Cipro preop for cystoscopy, but urine culture is pending at time of discharge -ok to resume home losartan as YOAN resolved -f/u with Urology on Sunday for Malone removal -gave Rx for oxybutynin prn bladder spasms -f/u on bladder polyp pathology and stone analysis with Urology after discharge #Headache-severe, likely related to dehydration and may be secondary to side effect of Dilaudid as seems to correlate. No focal neurological deficits. CT head negative for acute issues. Now completely resolved after stopping dilaudid, gave IVFs #[id number] on Metformin 1000 twice daily and insulin at home, Most recent A1C 7.1%. had some hyperglycemia here but improved with treating with lantus nad Novolog -resume home meds on discharge #gallbladder distention/hepatomegaly/fatty liver-no acute issues but seen on CT A/P. LFTs normal -Recommend weight loss and low carbohydrate diet -Follow-up with PCP #OSAno longer uses CPAP after gastric bypass #HTNBPs normal -Holding losartan with YOAN, but now can resume after discharge #HLDcontinue Zetia and ASA #BPHcontinue tamsulosin, AP CT showed enlarged prostate #GERDcontinue home PO famotidine and discontinue IV VTE ppx: SCDs Dispo: dc to home Notes For Next Care Provider Medication Changes From Visit See list Admission HPI Per Admitting Provider Patient is a 69-year-old male with past medical history of type II DM on insulin, CELI, hypertension, hyperlipidemia, BPH, GERD, history of gastric bypass surgery. He presented to the ED 10/27 and was found to have a 7 mm obstructing right mid ureteral stone and discharged on oxycodone. Patient returned to the ED 10/30 due to worsening pain. He was now found to have a 7 and 3 mm distal ureter stones with mild right hydronephrosis. He has been admitted for IV pain control, will make n.p.o. and consult urology. Patient seen at bedside. He stated he is about had about 5 kidney stones in the past but has passed them all without significant difficulty. Was seen in the ED several days ago and prescribed oxycodone, his pain continued to get worse at home. He endorses some nausea that comes and goes. The pain currently is shooting across the front of his abdomen on the right side. He also stated it is difficult to breathe with the pain however denies chest pain or shortness of breath. He denies any fevers or chills. He does not use nicotine products or drink alcohol regularly. He has a history of gastric bypasses and has monthly B12 injections. He no longer requires CPAP for sleep apnea after his gastric bypass. He took all of his home medications today including his evening insulin and tamsulosin 0.4 Mg po. he wishes to be DNR/DNI. Patient later reevaluated, wishes to be full code. Discharge Exam Constitutional WD/WN, vitals as above Respiratory normal respiratory effort, lungs clear to auscultation Cardiovascular RRR, no murmur, no edema Gastrointestinal (Abdomen) normal bowel sounds, soft, nontender, no hepatosplenomegaly Psychiatric A+Ox3, euthymic affect Discharge Plan Discharge Items Patient Disposition: Home - Self-Care Reason For Visit: RIGHT NEPHROLITHIASIS Discharge Diagnosis: Right ureterolithiasis with hydronephrosis Ureteral stricture Acute kidney injury Bladder polyp Condition on Discharge: Fair Activity: As commented below Exercise/Sports: As tolerated Non-emergency contact: Primary Care Provider Call non-emergency contact if: you have any medication questions Follow-up/Referrals: Waqar Gold MD [Primary Care Provider] - (Please follow up within 1- 2 weeks) Brady Wheeler DO [Physician] - (Follow up on Friday 11/03 for Malone catheter removal ) Diet: Carb Consistent or DM2 Addtl Attending Provider Instructions: You had a stent placed in your right ureter and had kidney stones lasered and removed. You had a narrowing in your urethra which was dilated and a Malone catheter remained in place. This will be removed on Sunday by Urology. You can take oxybutynin as needed for bladder spasms and oxycodone as needed for moderate-severe pain. You can take Tylenol as needed for mild-moderate pain. You can take ibuprofen but use this sparingly as it can thin the blood and also can affect the kidneys. A polyp in the bladder was biopsied and the result of this is not back yet. You can follow up with the Urologist on the results of this biopsy. Pending Studies at Discharge: Yes (Stone analysis,bladder biopsy,urine culture) Stand-Alone Forms: My [facility]ENT[facility], Smoking Cessation Medications and DC Order Prescriptions: New oxybutynin chloride 5 mg tablet 5 mg PO BID PRN (Reason: bladder spasms) Qty: 14 0RF ibuprofen 200 mg capsule 400 mg PO Q8H PRN (Reason: pain) Qty: 30 0RF Rx Instructions: OTC Continued red yeast rice 600 mg tablet 600 mg PO QAM magnesium oxide 400 mg magnesium tablet 400 mg PO HS multivitamin with minerals [Daily Multivitamin-Minerals] tablet 1 tab PO QAM aspirin 81 mg tablet,delayed release (DR/EC) 81 mg PO HS calcium carbonate 600 mg calcium (1,500 mg) tablet 1,200 mg PO QAM (DME) FreeStyle Daniel 3 Sensor Device See Rx Instructions .Route Qty: 2 5RF Rx Instructions: change sensor every 14 days cholecalciferol (vitamin D3) 25 mcg (1,000 unit) capsule 25 mcg PO QAM Qty: 90 3RF tamsulosin [Flomax] 0.4 mg capsule 0.4 mg PO HS Qty: 90 3RF (DME) pen needle, diabetic [BD Ultra-Fine Mini Pen Needle] 31 gauge x 3/16" needle See Rx Instructions .ROUTE .MEDSUPPLY Qty: 100 3RF Rx Instructions: for use with xultophy metformin 1,000 mg tablet 1,000 mg PO BID Qty: 180 3RF losartan 100 mg tablet 100 mg PO HS Qty: 90 3RF albuterol sulfate 90 mcg/actuation HFA aerosol inhaler 2 puff inhalation Q6H PRN (Reason: shortness of breath or wheezing) Qty: 6.7 3RF famotidine 20 mg tablet 20 mg PO BID Qty: 180 3RF ezetimibe [Zetia] 10 mg tablet 10 mg PO DAILY Qty: 30 2RF (DME) lancets [OneTouch Delica Lancets] 30 gauge misc See Rx Instructions .ROUTE .MEDSUPPLY Qty: 25 Rx Instructions: test 4 times daily (DME) blood sugar diagnostic [OneTouch Verio test strips] Strip See Rx Instructions .ROUTE .MEDSUPPLY Qty: 10 Rx Instructions: test 4 times daily acetaminophen [Tylenol Extra Strength] 500 mg Tablet 500 mg PO Q6H PRN (Reason: Pain) Cherry Log 3 Fish Oil 900-1,400 mg Capsule,Delayed Release(Dr/Ec) 1 cap PO QAM Qty: 0 insulin degludec [Tresiba FlexTouch U-200] 200 unit/mL (3 mL) insulin pen 18 unit subcut SPACE oxycodone 5 mg tablet 5 mg PO Q6 PRN (Reason: pain) Qty: 12 0RF Discharge Orders: Discharge Order (Routine); Ordered 11/01/24 Ordered By: Nadege Garcia Admission Data Admit Date/Time: 10/30/24 23:36 Attending Provider: Nadege Garcia Admit Provider: Amos Reardon Primary Care Provider: Waqar Gold Other Providers: Amos Reardon; Lj L[facility] Stay Data Consultations 10/30/24 23:26 ED Decision to Admit Stat 10/31/24 02:07 Consult Urology Routine Procedures Performed Operation Date: 10/31/24 08:20 Actual Procedures p Cystoscopy, Right Stent Placement, Bladder Biopsy(Right) - Brady Wheeler DO s Laser Stone Treatment(Right) - Brady Wheeler DO Diagnostic Imagining Performed 10/30/24 21:50 CT abd pelvis wo con Stat 10/31/24 [place] retrograde includes kub Routine 10/31/24 10:14 CT head/brain wo con Stat Pending Results Patient Have Any Pending Studies at Discharge: Yes (Stone analysis,bladder biopsy,urine culture) Discharge Instructions Given to Patient (Per Discharging Provider) You had a stent placed in your right ureter and had kidney stones lasered and removed. You had a narrowing in your urethra which was dilated and a Malone catheter remained in place. This will be removed on Sunday by Urology. You can take oxybutynin as needed for bladder spasms and oxycodone as needed for moderate-severe pain. You can take Tylenol as needed for mild-moderate pain. You can take ibuprofen but use this sparingly as it can thin the blood and also can affect the kidneys. A polyp in the bladder was biopsied and the result of this is not back yet. You can follow up with the Urologist on the results of this biopsy. Total Time Total Time Spent Total Time Spent (In Minutes): 35 min Total Time Includes: Examination of the Patient, Discharge Planning and Medication Reconciliation Coding Level of Care Code 24126 INP/OBS DISCH >30 MIN Diagnoses Right nephrolithiasis N20.0 Hydronephrosis of right kidney N13.30 Headache R51.9 YOAN (acute kidney injury) N17.9
[2024-11-01 16:50] VITALS: PULSE 74
--- NOTE | 2024-11-02 07:35 | Fluoroscopy Report ---
FL retrograde includes kub CLINICAL HISTORY: ADD ON STENT COMPARISON STUDY: CT of the abdomen and pelvis October 30, 2024. Fluoroscopy time: 41 seconds. Ka,r: 28.27 mGy. Number of fluoroscopic images: 3 FINDINGS: Fluoroscopy was provided during right retrograde pyelogram with right ureteral stent insert ion. IMPRESSION: Fluoroscopy provided during right retrograde pyelogram with right ureteral stent inserti on. ACT 112: Negative or not required by law. Electronically signed by: Mir Wick M.D. 11/02/2024 7:33 AM
[2024-11-11 02:28] LABS: Component 2 DNR; Source URE
== END 2024-11-01 17:42 | disposition home or self-care (01) | DRG 661 ==
LOC: ED 20:43 → 3W 23:36 → SUATTDRO 23:36 → 3W 10-31 01:45